=== PATIENT | female | born 1950 | race African-American/Black ===

== ENCOUNTER 2017-10-27 14:47 | Emergency (ER) | payer MEDICARE, OTHER, SELFPAY ==
[2017-10-27] MEDS ORDERED: HYDROCODONE/APAP 5/325 MG TAB ONE (15:31)
--- NOTE | 2017-10-27 15:48 | RAD REPORT ---
EXAM DESCRIPTION: RAD - Knee Left 3 View - 10/27/2017 3:33 pm CLINICAL HISTORY: Left knee pain FINDINGS: No fracture or dislocation is seen. Mild to moderate osteoarthritis involves the medial compartment consisting joint space narrowing and osteophytes. A joint effusion may be present. A prominent spur extends off of the superior aspect of the patella
--- NOTE | 2017-10-27 16:03 | ER ---
Nurse's Notes [facility] Name: Sagrario Low Age: 67 yrs Sex: Female : 1950 Arrival Date: 10/27/2017 Time: 14:49 Bed 13 Private MD: Orville Merida E Diagnosis: Pain in left knee Presentation: 10/27 14:54 Presenting complaint: Patient states: Left knee swelling and pain that began this ss morning, has had issues with it before, reports has an order for an MRI but has been too busy working to have the test done, denies trauma or injury to the knee at this time, reports has a hx of gout, takes allopurinol, but this doesn't feel like the gout pain. Transition of care: patient was not received from another setting of care. Onset of symptoms was October 27, 2017. Risk Assessment: Do you want to hurt yourself or someone else? Patient reports no desire to harm self or others. Initial Sepsis Screen: Does the patient meet any 2 criteria? No. Patient's initial sepsis screen is negative. Does the patient have a suspected source of infection? No. Patient's initial sepsis screen is negative. Care prior to arrival: None. 14:54 Acuity: ERIC 4 ss 14:54 Method Of Arrival: Ambulatory ss Historical: - Allergies: 14:57 No Known Allergies; ss - PMHx: 14:57 Gout; Hypertension; Hypothyroidism; ss - PSHx: 14:57 Cholecystectomy; ; ss - Immunization history:: Adult Immunizations up to date. - Social history:: Smoking status: Patient/guardian denies using tobacco, never smoked. - Ebola Screening: : Patient negative for fever greater than or equal to 101.5 degrees Fahrenheit, and additional compatible Ebola Virus Disease symptoms Patient denies exposure to infectious person Patient denies travel to an Ebola-affected area in the 21 days before illness onset No symptoms or risks identified at this time. Screenin:39 Abuse screen: Denies threats or abuse. Denies injuries from another. Nutritional aj screening: No deficits noted. Tuberculosis screening: No symptoms or risk factors identified. Fall Risk None identified. Assessment: 15:38 General: Appears in no apparent distress. comfortable, Behavior is calm, cooperative, aj appropriate for age. Pain: Pain: Complains of pain in left knee. 15:39 Neuro: Level of Consciousness is awake, alert, obeys commands, Oriented to person, aj place, time, situation, Appropriate for age. Respiratory: Airway is patent Respiratory effort is even, unlabored, Respiratory pattern is regular, symmetrical. Derm: Skin is intact, is healthy with good turgor, Skin is pink, warm \T\ dry. normal. Musculoskeletal: Reports pain in left knee. Vital Signs: 14:55 Pulse 65; Resp 18; Temp 97.7; Pulse Ox 100% ; Weight 86.18 kg (R); Height 5 ft. 3 in. ss (160.02 cm); Pain 10/10; 14:57 BP 135 / 86; ss 16:31 BP 137 / 79; Pulse 72; Resp 19; Pulse Ox 99% on R/A; aj 14:55 Body Mass Index 33.66 (86.18 kg, 160.02 cm) ED Course: 14:49 Patient arrived in ED. sb2 14:49 Orville Merida MD is Private Physician. sb2 14:53 Arm band placed on. ss 14:55 Triage completed. ss 15:01 Judson Hemphill, EMIGDIO is PHCP. pm1 15:01 Ron Wolfe MD is Attending Physician. pm1 15:23 Andressa Guardado, JOAN is Primary Nurse. aj 15:30 Patient moved to radiology via wheelchair. jr1 15:31 Knee Left 3 View XRAY In Process Unspecified. EDMS 15:32 Patient moved back from radiology. jr1 15:45 No provider procedures requiring assistance completed. Patient did not have IV access aj during this emergency room visit. 16:02 Sg Sarmiento MD is Referral Physician. pm1 16:31 Patient has correct armband on for positive identification. aj 16:31 Bridger wrap to left knee. aj Administered Medications: 15:38 Drug: [place] 5 mg-325 mg 1 tabs Route: PO; aj 16:29 Follow up: Response: Pain is decreased aj Outcome: 16:02 Discharge ordered by . pm1 16:31 Discharged to home ambulatory, with family. aj 16:31 Condition: good 16:31 Discharge instructions given to patient, Instructed on discharge instructions, follow up and referral plans. medication usage, Demonstrated understanding of instructions, follow-up care, medications, Prescriptions given X 1. 16:35 Patient left the ED. aj Signatures: Dispatcher [employer] Andressa Luis RN RN aj Ringgold, Jennifer jr1 Yue Almeida RN RN ss Judson Hemphill, CREDIT PORTFOLIO ADVISOR CREDIT PORTFOLIO ADVISOR pm1 Miesha Lovett sb2 Corrections: (The following items were deleted from the chart) 15:39 15:38 Pain: aj aj
--- NOTE | 2017-10-27 16:03 | EDPHYS ---
Physician Documentation [facility] Name: Sagrario Low Age: 67 yrs Sex: Female : 1950 Arrival Date: 10/27/2017 Time: 14:49 Bed 13 Private MD: Orville Merida E ED Physician Ron Wolfe HPI: 10/27 15:55 This 67 yrs old Black Female presents to ER via Ambulatory with complaints of Left Knee pm1 Pain. 15:55 The patient presents with pain, swelling. The complaints affect the left knee. pm1 Associated signs and symptoms: Pertinent negatives calf tenderness, fever, numbness, tingling, warmth. Treatment prior to arrival includes: prescription medications, codeine. Patient left knee with pain for at least one year and has been getting worse for the past 3-4 months. Patient seen by PCP in September for the same complaints and has had an order for left knee MRI that she has not gotten done due to work schedule. Patient reports increased pain with weight bearing and bending her left knee. Patient has been taking Tylenol #3 at home for the pain without relief. Historical: - Allergies: 14:57 No Known Allergies; ss - PMHx: 14:57 Gout; Hypertension; Hypothyroidism; ss - PSHx: 14:57 Cholecystectomy; ; ss - Immunization history:: Adult Immunizations up to date. - Social history:: Smoking status: Patient/guardian denies using tobacco, never smoked. - Ebola Screening: : Patient negative for fever greater than or equal to 101.5 degrees Fahrenheit, and additional compatible Ebola Virus Disease symptoms Patient denies exposure to infectious person Patient denies travel to an Ebola-affected area in the 21 days before illness onset No symptoms or risks identified at this time. ROS: 15:55 Constitutional: Negative for fever, chills, and weight loss, Cardiovascular: Negative pm1 for chest pain, palpitations, and edema, Respiratory: Negative for shortness of breath, cough, wheezing, and pleuritic chest pain, Abdomen/GI: Negative for abdominal pain, nausea, vomiting, diarrhea, and constipation, Back: Negative for injury and pain, : Negative for injury, bleeding, discharge, and swelling. 15:55 Skin: Negative for injury, rash, and discoloration, Neuro: Negative for headache, weakness, numbness, tingling, and seizure. 15:55 MS/extremity: Positive for pain, swelling, of the left knee, Negative for injury or acute deformity, decreased range of motion, deformity, paresthesias, rash, tingling. Exam: 15:55 Constitutional: This is a well developed, well nourished patient who is awake, alert, pm1 and in no acute distress. Head/Face: Normocephalic, atraumatic. Chest/axilla: Normal chest wall appearance and motion. Nontender with no deformity. No lesions are appreciated. Cardiovascular: Regular rate and rhythm with a normal S1 and S2. No gallops, murmurs, or rubs. No pulse deficits. Respiratory: Lungs have equal breath sounds bilaterally, clear to auscultation and percussion. No rales, rhonchi or wheezes noted. No increased work of breathing, no retractions or nasal flaring. Abdomen/GI: Soft, non-tender, with normal bowel sounds. No distension or tympany. No guarding or rebound. No evidence of tenderness throughout. Back: No spinal tenderness. No costovertebral tenderness. Full range of motion. Skin: Warm, dry with normal turgor. Normal color with no rashes, no lesions, and no evidence of cellulitis. 15:55 Musculoskeletal/extremity: Extremities: grossly normal except: noted in the left knee: There is no evidence of decreased ROM, deformity, Pain to lateral aspect of left knee with external and internal rotation. Negative drawer test. No pain with palpation and extension and flexion of knee, Circulation is intact in all extremities. Sensation intact. DVT Exam: No signs of deep vein thrombosis. Vital Signs: 14:55 Pulse 65; Resp 18; Temp 97.7; Pulse Ox 100% ; Weight 86.18 kg (R); Height 5 ft. 3 in. ss (160.02 cm); Pain 10/10; 14:57 BP 135 / 86; ss 16:31 BP 137 / 79; Pulse 72; Resp 19; Pulse Ox 99% on R/A; aj 14:55 Body Mass Index 33.66 (86.18 kg, 160.02 cm) ss MDM: 15:03 Patient medically screened. pm1 16:01 Data reviewed: vital signs. Data interpreted: Pulse oximetry: on room air is 100 %. pm1 Interpretation: normal. Counseling: I had a detailed discussion with the patient and/or guardian regarding: the historical points, exam findings, and any diagnostic results supporting the discharge/admit diagnosis, radiology results, the need for outpatient follow up, for definitive care, a orthopedic surgeon, to return to the emergency department if symptoms worsen or persist or if there are any questions or concerns that arise at home. 10/27 15:09 Order name: Knee Left 3 View XRAY; Complete Time: 15:55 pm1 10/27 15:55 Order name: Bridger wrap-joint; Complete Time: 16:29 pm1 Administered Medications: 15:38 Drug: [place] 5 mg-325 mg 1 tabs Route: PO; aj 16:29 Follow up: Response: Pain is decreased aj Disposition: 18:37 Co-signature as Attending Physician, Ron Wolfe MD. rn Disposition: 10/27/17 16:02 Discharged to Home. Impression: Pain in left knee. - Condition is Stable. - Discharge Instructions: Arthritis, Nonspecific, Knee Pain. - Prescriptions for Tylenol- Codeine #3 300-30 mg Oral Tablet - take 2 tablets by ORAL route every 6 hours As needed; 20 tablet. - Medication Reconciliation Form, Thank You Letter, Prescription Opioid Use form. - Follow up: Emergency Department; When: As needed; Reason: Worsening of condition. Follow up: Sg Sarmiento MD; When: 2 - 3 days; Reason: Recheck today's complaints, Continuance of care, Re-evaluation by your physician. - Problem is new. - Symptoms have improved. Signatures: Dispatcher [employer] Andressa Luis RN RN aj Nieto, Roman, MD MD rn Smirch, Shelby, RN RN ss Marinas, Patrick, NP ENROLLED AGENT pm1 Corrections: (The following items were deleted from the chart) 16:35 16:02 10/27/2017 16:02 Discharged to Home. Impression: Pain in left knee. Condition is aj Stable. Forms are Medication Reconciliation Form, Thank You Letter, Antibiotic Education, Prescription Opioid Use. Follow up: Emergency Department; When: As needed; Reason: Worsening of condition. Follow up: Sg Sarmiento; When: 2 - 3 days; Reason: Recheck today's complaints, Continuance of care, Re-evaluation by your physician. Problem is new. Symptoms have improved. pm1
== END 2017-10-27 16:35 | disposition home or self-care (01) ==
LOC: ER 14:47
DX: M25.562 Pain in left knee (principal); M10.9 Gout, unspecified; I10 Essential (primary) hypertension; E03.9 Hypothyroidism, unspecified
CPT/HCPCS: 99284

== ENCOUNTER 2018-08-29 14:27 | Emergency (ER) | payer OTHER ==
--- NOTE | 2018-08-29 15:55 | RAD REPORT ---
EXAM DESCRIPTION: RAD - Chest Pa And Lat (2 Views) - 08/29/2018 2:58 pm CLINICAL HISTORY: Productive cough, fever COMPARISON: August 2015 TECHNIQUE: PA and lateral views of the chest were obtained. FINDINGS: The lungs are normal volume. Airspace opacification is present posterior right lung base. No failure or volume overload. Heart size is normal and central vasculature is within normal limits . No pleural effusion or pneumothorax seen. No acute bone finding. Patient has prominent thoracolum bar scoliosis. No aortic abnormality. IMPRESSION: Acute pneumonia posterior right lung base.
[2018-08-29] MEDS ORDERED: AZITHROMYCIN 250 MG TAB ONE (16:06)
[2018-08-29] MEDS ORDERED: IPRATROPIUM BROM 0.5MG/2.5ML ONE (16:07)
[2018-08-29] MEDS ORDERED: ALBUTEROL 2.5 MG/3 ML NEB SOL ONE (16:07)
[2018-08-29] MEDS ORDERED: CEFTRIAXONE/SWI 1gm 1 GM/10 ML SYR ONE (16:07)
[2018-08-29] MEDS ORDERED: NA CHLORIDE 0.9% 100 ML IV ONE (16:08)
[2018-08-29 16:09] LABS: Absolute Lymphocytes (CBC) 2.2 K/uL (0.7-4.9); Absolute Monocytes 0.4 K/uL (0.1-1.3); Absolute Neutrophil 1.6 K/uL (1.8-8.0); Basophils % 0.7 % (0-1.3); Eosinophils % 1.9 % (0-4.4); Hematocrit 34.8 % (36.0-45.0); Lymphocytes % 50.8 % (15.3-44.8); MPV 8.8 fL (7.6-11.3); Monocytes % 9.1 % (3.3-12.3); RBC Red Blood Cell Count 3.82 M/uL (3.86-4.86)
[2018-08-29 16:18] LABS: Potassium 3.2 mmol/L (3.5-5.1)
--- NOTE | 2018-08-29 16:36 | EDPHYS ---
Physician Documentation [facility] Name: Sagrario Low Age: 68 yrs Sex: Female : 1950 Arrival Date: 08/29/2018 Time: 14:30 Bed 20 Private MD: Orville Merida E ED Physician Pelon Sr HPI: 08/29 15:42 This 68 yrs old Black Female presents to ER via Ambulatory with complaints of Cough, kb Congestion. 15:42 The patient or guardian reports cough, that is intermittent, described as moderate, kb with no sputum, flu symptoms, low-grade fever. Onset: The symptoms/episode began/occurred 2 day(s) ago. Severity of symptoms: At their worst the symptoms were mild, moderate, in the emergency department the symptoms are unchanged. Modifying factors: The symptoms are alleviated by nothing, the symptoms are aggravated by nothing. Associated signs and symptoms: Pertinent positives: fever, Pertinent negatives: chest pain, diarrhea, ear ache, nausea, rhinorrhea, sore throat, vomiting. The patient has not experienced similar symptoms in the past. The patient has not recently seen a physician. Historical: - Allergies: 14:40 No Known Allergies; sv - PMHx: 14:40 Gout; Hypertension; Hypothyroidism; sv - PSHx: 14:40 Cholecystectomy; ; sv - Immunization history:: Adult Immunizations up to date. - Social history:: Smoking status: Patient/guardian denies using tobacco. - Ebola Screening: : Patient negative for fever greater than or equal to 101.5 degrees Fahrenheit, and additional compatible Ebola Virus Disease symptoms Patient denies exposure to infectious person Patient denies travel to an Ebola-affected area in the 21 days before illness onset No symptoms or risks identified at this time. ROS: 15:42 ENT: Negative for injury, pain, and discharge, Neck: Negative for injury, pain, and kb swelling, Cardiovascular: Negative for chest pain, palpitations, and edema, Abdomen/GI: Negative for abdominal pain, nausea, vomiting, diarrhea, and constipation, Back: Negative for injury and pain, MS/Extremity: Negative for injury and deformity, Skin: Negative for injury, rash, and discoloration, Neuro: Negative for headache, weakness, numbness, tingling, and seizure. 15:42 Constitutional: Positive for fatigue, fever, Negative for body aches, chills, malaise, poor PO intake, weight loss. 15:42 Respiratory: Positive for cough, Negative for dyspnea on exertion, hemoptysis, orthopnea, pleurisy, shortness of breath, sputum production, wheezing. Exam: 15:41 Constitutional: This is a well developed, well nourished patient who is awake, alert, kb and in no acute distress. Head/Face: Normocephalic, atraumatic. Chest/axilla: Normal chest wall appearance and motion. Nontender with no deformity. No lesions are appreciated. Cardiovascular: Regular rate and rhythm with a normal S1 and S2. No gallops, murmurs, or rubs. Normal PMI, no JVD. No pulse deficits. Respiratory: Lungs have equal breath sounds bilaterally, clear to auscultation and percussion. No rales, rhonchi or wheezes noted. No increased work of breathing, no retractions or nasal flaring. Abdomen/GI: Soft, non-tender, with normal bowel sounds. No distension or tympany. No guarding or rebound. No evidence of tenderness throughout. Skin: Warm, dry with normal turgor. Normal color with no rashes, no lesions, and no evidence of cellulitis. MS/ Extremity: Pulses equal, no cyanosis. Neurovascular intact. Full, normal range of motion. Neuro: Awake and alert, GCS 15, oriented to person, place, time, and situation. Cranial nerves II-XII grossly intact. Motor strength 5/5 in all extremities. Sensory grossly intact. Cerebellar exam normal. Normal gait. Vital Signs: 14:40 BP 123 / 70; Pulse 76; Resp 20; Temp 97.1; Pulse Ox 100% ; Weight 81.65 kg; Height 5 sv ft. 3 in. (160.02 cm); Pain 0/10; 16:32 BP 132 / 78; Pulse 68; Resp 16; Pulse Ox 100% ; bp 14:40 Body Mass Index 31.89 (81.65 kg, 160.02 cm) sv MDM: 14:41 Patient medically screened. kb 15:22 Data reviewed: vital signs, nurses notes. Data interpreted: Pulse oximetry: on room air kb is 100 %. Interpretation: normal. Test interpretation: by ED physician or midlevel provider: plain radiologic studies, cxr shows pneumonia right lower lobe. 16:34 Counseling: I had a detailed discussion with the patient and/or guardian regarding: the kb historical points, exam findings, and any diagnostic results supporting the discharge/admit diagnosis, lab results, radiology results, the need for outpatient follow up, a family practitioner, to return to the emergency department if symptoms worsen or persist or if there are any questions or concerns that arise at home. ED course: Pt does not want to be admitted. No resp distress. Educated to return for shortness of breath or worsening symptoms. Findings and plan discussed with ERP. . 08/29 15:22 Order name: CBC with Diff; Complete Time: 16:30 kb 08/29 15:22 Order name: Basic Metabolic Panel; Complete Time: 16:19 kb 08/29 14:44 Order name: Chest Pa And Lat (2 Views) XRAY; Complete Time: 16:01 kb 08/29 15:22 Order name: Lactate; Complete Time: 16:21 kb 08/29 15:22 Order name: Procalcitonin; Complete Time: 16:30 kb 08/29 15:22 Order name: Blood Culture Adult (2) kb 08/29 15:22 Order name: IV Start; Complete Time: 15:45 kb Administered Medications: 15:45 Drug: Rocephin 1 grams Route: IV; Rate: calculated rate; Site: right upper arm; bp 16:46 Follow up: IV Status: Completed infusion; IV Intake: 100ml bp 15:45 Drug: Zithromax 500 mg Route: PO; bp 16:31 Follow up: Response: No adverse reaction bp 16:00 Drug: Albuterol 2.5 mg Route: Inhalation; bp 16:00 Drug: AtroVENT Aerosol 0.5 mg Route: Inhalation; bp Disposition: 08/30 12:10 Co-signature as Attending Physician, Pelon Sr MD I agree with the assessment and naomi plan of care. Disposition: 08/29/18 16:35 Discharged to Home. Impression: Pneumonia, unspecified organism. - Condition is Stable. - Discharge Instructions: Community-Acquired Pneumonia, Adult, [id number]. - Prescriptions for Augmentin 875- 125 mg Oral Tablet - take 1 tablet by ORAL route every 12 hours for 7 days; 14 tablet. Albuterol Sulfate 90 mcg/actuation - inhale 1-2 puff by INHALATION route every 4-6 hours; 1 Inhaler. Zithromax 500 mg Oral Tablet - take 1 tablet by ORAL route once daily for 5 days; 5 tablet. - Medication Reconciliation Form, Thank You Letter, Antibiotic Education, Prescription Opioid Use form. - Follow up: Emergency Department; When: As needed; Reason: Worsening of condition. Follow up: Private Physician; When: 2 - 3 days; Reason: Recheck today's complaints, Continuance of care, Re-evaluation by your physician. Signatures: Dispatcher [employer] EDMatilde Tripp FNP-C FNP-Ckb Verde, Stephanie, RN RN sv Pelon Sr MD MD cha Peltier, Brian RN RN bp Corrections: (The following items were deleted from the chart) 08/29 16:47 16:35 08/29/2018 16:35 Discharged to Home. Impression: Pneumonia, unspecified organism. bp Condition is Stable. Forms are Medication Reconciliation Form, Thank You Letter, Antibiotic Education, Prescription Opioid Use. Follow up: Emergency Department; When: As needed; Reason: Worsening of condition. Follow up: Private Physician; When: 2 - 3 days; Reason: Recheck today's complaints, Continuance of care, Re-evaluation by your physician. kb
--- NOTE | 2018-08-29 16:36 | ER ---
Nurse's Notes [facility] Name: Sagrario Low Age: 68 yrs Sex: Female : 1950 Arrival Date: 08/29/2018 Time: 14:30 Bed 20 Private MD: Orville Merida E Diagnosis: Pneumonia, unspecified organism Presentation: 08/29 14:39 Presenting complaint: Patient states: productive cough, fever, congestion since Tuesday. sv Transition of care: patient was not received from another setting of care. Onset of symptoms was August 27, 2018. Care prior to arrival: None. 14:39 Method Of Arrival: Ambulatory sv 14:39 Acuity: ERIC 3 sv 14:45 Risk Assessment: Do you want to hurt yourself or someone else? Patient reports no bp desire to harm self or others. Initial Sepsis Screen: Does the patient meet any 2 criteria? No. Patient's initial sepsis screen is negative. Does the patient have a suspected source of infection? No. Patient's initial sepsis screen is negative. Triage Assessment: 14:45 General: Appears in no apparent distress. comfortable, Behavior is calm, cooperative, bp appropriate for age. Pain: Denies pain. EENT: Reports nasal congestion. Neuro: Level of Consciousness is awake, alert, obeys commands, Oriented to person, place, time, situation, Appropriate for age. Cardiovascular: No deficits noted. Respiratory: Reports cough that is Breath sounds are clear bilaterally. GI: No signs and/or symptoms were reported involving the gastrointestinal system. : No signs and/or symptoms were reported regarding the genitourinary system. Derm: No deficits noted. Musculoskeletal: Circulation, motion, and sensation intact. Range of motion: intact in all extremities. Historical: - Allergies: 14:40 No Known Allergies; sv - PMHx: 14:40 Gout; Hypertension; Hypothyroidism; sv - PSHx: 14:40 Cholecystectomy; ; sv - Immunization history:: Adult Immunizations up to date. - Social history:: Smoking status: Patient/guardian denies using tobacco. - Ebola Screening: : Patient negative for fever greater than or equal to 101.5 degrees Fahrenheit, and additional compatible Ebola Virus Disease symptoms Patient denies exposure to infectious person Patient denies travel to an Ebola-affected area in the 21 days before illness onset No symptoms or risks identified at this time. Screenin:05 Abuse screen: Denies threats or abuse. Denies injuries from another. Nutritional bp screening: No deficits noted. Tuberculosis screening: No symptoms or risk factors identified. Fall Risk None identified. Assessment: 14:45 General: SEE TRIAGE NOTE. Cardiovascular: Rhythm is sinus rhythm. Respiratory: Reports bp cough that is. 16:43 Reassessment: PT D/C HOME AMBULATORY WITH FAMILY, DX WITH RLL PNEUMONIA. bp Cardiovascular: No deficits noted. Respiratory: Breath sounds with crackles in right lower lobe. Vital Signs: 14:40 BP 123 / 70; Pulse 76; Resp 20; Temp 97.1; Pulse Ox 100% ; Weight 81.65 kg; Height 5 sv ft. 3 in. (160.02 cm); Pain 0/10; 16:32 BP 132 / 78; Pulse 68; Resp 16; Pulse Ox 100% ; bp 14:40 Body Mass Index 31.89 (81.65 kg, 160.02 cm) sv ED Course: 14:30 Patient arrived in ED. rg4 14:31 Orville Merida MD is Private Physician. rg4 14:40 Triage completed. sv 14:40 Arm band placed on. sv 14:41 Matilde Low FNP-C is PHCP. kb 14:41 Pelon Sr MD is Attending Physician. kb 14:58 Chest Pa And Lat (2 Views) XRAY In Process Unspecified. EDMS 15:02 Chato Holden, JOAN is Primary Nurse. bp 15:05 Patient has correct armband on for positive identification. Bed in low position. Call bp light in reach. Side rails up X2. 15:45 Inserted saline lock: 20 gauge in right antecubital area, using aseptic technique. bp Blood collected. 16:44 No provider procedures requiring assistance completed. IV discontinued, intact, bp bleeding controlled, No redness/swelling at site. Pressure dressing applied. Administered Medications: 15:45 Drug: Rocephin 1 grams Route: IV; Rate: calculated rate; Site: right upper arm; bp 16:46 Follow up: IV Status: Completed infusion; IV Intake: 100ml bp 15:45 Drug: Zithromax 500 mg Route: PO; bp 16:31 Follow up: Response: No adverse reaction bp 16:00 Drug: Albuterol 2.5 mg Route: Inhalation; bp 16:00 Drug: AtroVENT Aerosol 0.5 mg Route: Inhalation; bp Intake: 16:46 IV: 100ml; Total: 100ml. bp Outcome: 16:35 Discharge ordered by . stanley 16:44 Discharged to home ambulatory, with family. bp 16:44 Condition: stable 16:44 Discharge instructions given to patient, Instructed on discharge instructions, follow up and referral plans. medication usage, Demonstrated understanding of instructions, follow-up care, medications, Prescriptions given X 3. 16:47 Patient left the ED. bp Signatures: Dispatcher [employer] EDMS Matilde Low, PERSONAL DEVELOPMENT COACH-C PERSONAL DEVELOPMENT COACH-Merle Ventura, RN RN Aarti Fierro4 Chato Holden RN RN bp
== END 2018-08-29 16:47 | disposition home or self-care (01) ==
LOC: ER 14:27
DX: J18.9 Pneumonia, unspecified organism (principal); M10.9 Gout, unspecified; I10 Essential (primary) hypertension; E03.9 Hypothyroidism, unspecified
CPT/HCPCS: 96365; 87040 ×2; 85025; 80048; 36415; 83605; 84145; 71046; 99285; J0696

== ENCOUNTER 2018-11-14 05:14 | Emergency (ER) | payer OTHER ==
--- NOTE | 2018-11-14 06:37 | ER ---
Nurse's Notes [facility] Name: Sagrario Low Age: 68 yrs Sex: Female : 1950 Arrival Date: 11/14/2018 Time: 05:17 Bed 14 Private MD: Diagnosis: Pain in left ankle and joints of left foot Presentation: 11/14 05:20 Presenting complaint: Patient states: that she is having pain to left outer ankle x 3 fc days. Denies any injury. Hx of gout and takes Allopurinol and Indomethacin prn. Transition of care: patient was not received from another setting of care. Onset of symptoms was November 12, 2018. Risk Assessment: Do you want to hurt yourself or someone else? Patient reports no desire to harm self or others. Initial Sepsis Screen: Does the patient meet any 2 criteria? No. Patient's initial sepsis screen is negative. Does the patient have a suspected source of infection? No. Patient's initial sepsis screen is negative. Care prior to arrival: None. 05:20 Method Of Arrival: Wheelchair fc 05:20 Acuity: ERIC 4 fc Historical: - Allergies: 05:31 No Known Allergies; fc - Home Meds: 05:31 losartan-hydrochlorothiazide Oral once daily for Hypertension [Active]; levothyroxine fc 100 mcg tab 1 tab once daily for Hypothyroidism [Active]; Allopurinol Oral as needed [Active]; Indomethacin Oral as needed [Active]; - PMHx: 05:31 Gout; Hypertension; Hypothyroidism; fc - PSHx: 05:31 Cholecystectomy; ; fc - Immunization history:: Last tetanus immunization: up to date. - Social history:: Smoking status: Patient/guardian denies using tobacco, Patient/guardian denies using alcohol, street drugs. - Ebola Screening: : Patient negative for fever greater than or equal to 101.5 degrees Fahrenheit, and additional compatible Ebola Virus Disease symptoms Patient denies exposure to infectious person Patient denies travel to an Ebola-affected area in the 21 days before illness onset. Screenin:20 Abuse screen: Denies threats or abuse. Nutritional screening: No deficits noted. fc Tuberculosis screening: No symptoms or risk factors identified. Fall Risk None identified. Assessment: 05:27 General: Appears in no apparent distress. uncomfortable, Behavior is calm, cooperative, jd3 appropriate for age. Pain: Complains of pain in left ankle Quality of pain is described as aching, shooting, tender, Is continuous, Aggravated by increased activity, repositioning, weight bearing. Neuro: Level of Consciousness is awake, alert, obeys commands, Oriented to person, place, time, situation. Cardiovascular: Capillary refill < 3 seconds Patient's skin is warm and dry. Respiratory: Airway is patent Respiratory effort is even, unlabored, Respiratory pattern is regular, symmetrical. GI: No signs and/or symptoms were reported involving the gastrointestinal system. : No signs and/or symptoms were reported regarding the genitourinary system. EENT: No signs and/or symptoms were reported regarding the EENT system. Derm: Skin is intact, Skin is dry, Skin is normal, Skin temperature is warm. Musculoskeletal: Circulation, motion, and sensation intact. Range of motion: limited in left ankle Swelling present in left ankle. 06:06 Reassessment: Patient appears in no apparent distress at this time. No changes from j previously documented assessment. Patient and/or family updated on plan of care and expected duration. Pain level reassessed. Patient is alert, oriented x 3, equal unlabored respirations, skin warm/dry/pink. awaiting x-ray and further providers orders. 06:48 Reassessment: Patient appears in no apparent distress at this time. Patient and/or jd3 family updated on plan of care and expected duration. Pain level reassessed. Patient is alert, oriented x 3, equal unlabored respirations, skin warm/dry/pink. reports understanding of discharge instructions. assisted pt to car with wheelchair. Vital Signs: 05:20 BP 125 / 73; Pulse 78; Resp 18; Temp 98.1(O); Pulse Ox 98% on R/A; Weight 81.19 kg (R); fc Height 5 ft. 3 in. (160.02 cm) (R); Pain 9/10; 06:06 BP 140 / 89; Pulse 70; Resp 18 S; Pulse Ox 99% on R/A; Pain 9/10; jd3 05:20 Body Mass Index 31.71 (81.19 kg, 160.02 cm) ED Course: 05:17 Patient arrived in ED. ag3 05:20 Alfred Townsend RN is Primary Nurse. jd3 05:20 Arm band placed on Patient placed in an exam room, on a stretcher. fc 05:20 Patient has correct armband on for positive identification. Bed in low position. Call light in reach. Side rails up X 1. Pulse ox on. NIBP on. 05:20 No provider procedures requiring assistance completed. fc 05:28 Triage completed. fc 06:09 Pelon Kennedy PA is PHCP. cp 06:09 Ron Wolfe MD is Attending Physician. cp 06:17 Warm blanket given. Pillow given. jd3 06:22 Ankle Left 3 View XRAY In Process Unspecified. EDMS 06:49 Patient did not have IV access during this emergency room visit. jd3 Administered Medications: 06:38 Drug: Ibuprofen 800 mg Route: PO; jd3 06:50 Follow up: Response: No adverse reaction jd3 06:38 Drug: HYDROcodone-acetaminophen 5 mg-325 mg 1 tabs Route: PO; jd3 06:50 Follow up: Response: No adverse reaction jd3 Outcome: 06:36 Discharge ordered by . cp 06:49 Discharged to home via wheelchair, with family. jd3 06:49 Condition: stable 06:49 Discharge instructions given to patient, family, Instructed on discharge instructions, follow up and referral plans. medication usage, Demonstrated understanding of instructions, follow-up care, medications, Prescriptions given X 2. 06:51 Patient left the ED. jd3 Signatures: Dispatcher [employer] EDFL Jessica Parker RN RN Pelon Kennedy PA PA cp Davies, Jonathon, RN RN jd3 Angela Fernández ag3
--- NOTE | 2018-11-14 06:37 | EDPHYS ---
Physician Documentation [facility] Name: Sagrario Low Age: 68 yrs Sex: Female : 1950 Arrival Date: 11/14/2018 Time: 05:17 Bed 14 Private MD: ED Physician Ron Wolfe HPI: 11/14 06:29 This 68 yrs old Black Female presents to ER via Wheelchair with complaints of Ankle cp Swelling. 06:30 The patient presents with pain, that is acute, swelling, tenderness. The complaints cp affect the left ankle. Onset: The symptoms/episode began/occurred 3 day(s) ago. Context: resulted from an unknown cause, The patient can partially bear weight on the affected extremity. the patient is able to ambulate. Associated signs and symptoms: Pertinent negatives: calf tenderness, numbness, warmth, weakness. Modifying factors: the symptoms are aggravated by weight bearing, movement. Severity of symptoms: in the emergency department the symptoms are unchanged, despite home interventions. Historical: - Allergies: 05:31 No Known Allergies; fc - Home Meds: 05:31 losartan-hydrochlorothiazide Oral once daily for Hypertension [Active]; levothyroxine fc 100 mcg tab 1 tab once daily for Hypothyroidism [Active]; Allopurinol Oral as needed [Active]; Indomethacin Oral as needed [Active]; - PMHx: 05:31 Gout; Hypertension; Hypothyroidism; fc - PSHx: 05:31 Cholecystectomy; ; fc - Immunization history:: Last tetanus immunization: up to date. - Social history:: Smoking status: Patient/guardian denies using tobacco, Patient/guardian denies using alcohol, street drugs. - Ebola Screening: : Patient negative for fever greater than or equal to 101.5 degrees Fahrenheit, and additional compatible Ebola Virus Disease symptoms Patient denies exposure to infectious person Patient denies travel to an Ebola-affected area in the 21 days before illness onset. ROS: 06:31 Eyes: Negative for injury, pain, redness, and discharge. cp 06:31 Constitutional: Negative for body aches, chills, fever, poor PO intake. 06:31 ENT: Negative for drainage from ear(s), ear pain, sore throat, difficulty swallowing, difficulty handling secretions. 06:31 Cardiovascular: Negative for chest pain, palpitations. 06:31 Respiratory: Negative for cough, shortness of breath, wheezing. 06:31 Abdomen/GI: Negative for abdominal pain, nausea, vomiting, and diarrhea. 06:31 Back: Negative for pain at rest, pain with movement, radiated pain. 06:31 MS/extremity: Positive for pain, swelling, tenderness, of the left lateral ankle, Negative for injury or acute deformity, paresthesias. 06:31 All other systems are negative. Exam: 06:33 Head/Face: Normocephalic, atraumatic. cp 06:33 Constitutional: The patient appears in no acute distress, alert, awake, non-toxic, well developed, well nourished. 06:33 Cardiovascular: Rate: normal. 06:33 Respiratory: the patient does not display signs of respiratory distress, Respirations: normal. 06:33 Musculoskeletal/extremity: Extremities: grossly normal except: noted in the left lateral ankle: pain, swelling, tenderness, There is no evidence of decreased ROM, deformity, erythema, Perfusion: the extremity is normally perfused throughout, Sensation intact. 06:33 Skin: cellulitis, is not appreciated, no rash present. cp Vital Signs: 05:20 BP 125 / 73; Pulse 78; Resp 18; Temp 98.1(O); Pulse Ox 98% on R/A; Weight 81.19 kg (R); fc Height 5 ft. 3 in. (160.02 cm) (R); Pain 9/10; 06:06 BP 140 / 89; Pulse 70; Resp 18 S; Pulse Ox 99% on R/A; Pain 9/10; jd3 05:20 Body Mass Index 31.71 (81.19 kg, 160.02 cm) fc MDM: 06:10 Patient medically screened. cp 06:35 Data reviewed: vital signs, nurses notes, radiologic studies, plain films, and as a cp result, I will discharge patient. Counseling: I had a detailed discussion with the patient and/or guardian regarding: the historical points, exam findings, and any diagnostic results supporting the discharge/admit diagnosis, radiology results, the need for outpatient follow up, an shipping and receiving coordinator, to return to the emergency department if symptoms worsen or persist or if there are any questions or concerns that arise at home. Response to treatment: the patient's symptoms have mildly improved after treatment, and as a result, I will discharge patient. 11/14 05:32 Order name: Ankle Left 3 View XRAY Administered Medications: 06:38 Drug: Ibuprofen 800 mg Route: PO; jd3 06:50 Follow up: Response: No adverse reaction jd3 06:38 Drug: HYDROcodone-acetaminophen 5 mg-325 mg 1 tabs Route: PO; jd3 06:50 Follow up: Response: No adverse reaction jd3 Disposition: 07:01 Co-signature as Attending Physician, Ron Wolfe MD. rn Disposition: 11/14/18 06:36 Discharged to Home. Impression: Pain in left ankle and joints of left foot. - Condition is Stable. - Discharge Instructions: Elastic Bandage and RICE, Ankle Pain. - Prescriptions for Tramadol 50 mg Oral Tablet - take 1 tablet by ORAL route every 8 hours As needed as needed; 20 tablet. Prednisone 20 mg Oral Tablet - take 2 tablet by ORAL route once daily for 5 days; 10 tablet. - Medication Reconciliation Form, Thank You Letter, Antibiotic Education, Prescription Opioid Use, Work release form form. - Follow up: Private Physician; When: 2 - 3 days; Reason: Worsening of condition. - Problem is new. - Symptoms have improved. Signatures: Dispatcher [employer] Jessica Beltrán RN RN Ron Wolfe MD MD rn Page, Corey, PA PA cp Davies, Jonathon RN RN jd3 Corrections: (The following items were deleted from the chart) 06:51 06:36 11/14/2018 06:36 Discharged to Home. Impression: Pain in left ankle and joints of jd3 left foot. Condition is Stable. Forms are Medication Reconciliation Form, Thank You Letter, Antibiotic Education, Prescription Opioid Use. Follow up: Private Physician; When: 2 - 3 days; Reason: Worsening of condition. Problem is new. Symptoms have improved. cp 11/15 05:20 11/14 06:33 Skin: cellulitis, is not appreciated, no rash present. cp cp 11/15 05:30 11/14 06:33 Skin: cellulitis, is not appreciated, rash can be described as plaque-like, cp scale, on the right foot and left foot, cp
[2018-11-14] MEDS ORDERED: HYDROCODONE/APAP 5/325 MG TAB ONE (06:47)
[2018-11-14] MEDS ORDERED: IBUPROFEN 400 MG TAB ONE (06:47)
--- NOTE | 2018-11-14 08:04 | RAD REPORT ---
EXAM DESCRIPTION: RAD - Ankle Left 3 View -11/14/2018 6:22 am CLINICAL HISTORY: Left ankle pain FINDINGS: No fracture or dislocation is seen. Mild joint space narrowing and small osteophytes. No erosions seen. Moderate calcaneal spur. Mild soft tissue swelling laterally
== END 2018-11-14 06:51 | disposition home or self-care (01) ==
LOC: ER 05:14
DX: M25.572 Pain in left ankle and joints of left foot (principal); M10.9 Gout, unspecified; I10 Essential (primary) hypertension; E03.9 Hypothyroidism, unspecified
CPT/HCPCS: 99284

== ENCOUNTER 2019-05-15 09:21 | Emergency (ER) | payer OTHER ==
--- NOTE | 2019-05-15 10:34 | RAD REPORT ---
EXAM DESCRIPTION: RAD - Lumbar Spine 3 Views - 05/15/2019 10:29 am CLINICAL HISTORY: low back pain Radiculopathy COMPARISON: LUMBAR SPINE 3 VIEWS dated 01/07/2015; LUMBAR SPINE 3 VIEWS dated 08/07/2012 FINDINGS: Vertebral body heights appear maintained. No compression fracture noted. Disc spaces are m aintained. Levoscoliosis is present. Cholecystectomy clips. IMPRESSION: No acute process identified. Moderate levoscoliosis.
[2019-05-15] MEDS ORDERED: HYDROCODONE/APAP 5/325 MG TAB ONE (10:53)
--- NOTE | 2019-05-15 11:52 | ER ---
Nurse's Notes [facility] Name: Sagrario Low Age: 68 yrs Sex: Female : 1950 Arrival Date: 05/15/2019 Time: 09:22 Bed 17 Private MD: Diagnosis: Strain of muscle and tendon of back wall of thorax Presentation: 05/15 09:34 Presenting complaint: Patient states: left lower back pain that began approximately 1 aa5 week ago. Pt denies injury. Denies urinary symptoms. Transition of care: patient was not received from another setting of care. Onset of symptoms was May 2019. Risk Assessment: Do you want to hurt yourself or someone else? Patient reports no desire to harm self or others. Initial Sepsis Screen: Does the patient meet any 2 criteria? No. Patient's initial sepsis screen is negative. Does the patient have a suspected source of infection? No. Patient's initial sepsis screen is negative. Care prior to arrival: None. 09:34 Acuity: ERIC 4 aa5 09:34 Method Of Arrival: Ambulatory aa5 Historical: - Allergies: 09:35 No Known Allergies; aa5 - PMHx: 09:35 Gout; Hypertension; Hypothyroidism; aa5 - PSHx: 09:35 Cholecystectomy; ; aa5 - Immunization history:: Flu vaccine is up to date. - Social history:: Smoking status: Patient/guardian denies using tobacco. - Ebola Screening: : No symptoms or risks identified at this time. Screenin:54 Abuse screen: Denies threats or abuse. Nutritional screening: No deficits noted. em Tuberculosis screening: No symptoms or risk factors identified. Fall Risk None identified. Assessment: 10:41 General: Appears in no apparent distress. comfortable, Behavior is calm, cooperative, em Denies fever. Pain: Complains of pain in left mid back Pain radiates to left low back Pain currently is 7 out of 10 on a pain scale. Neuro: Level of Consciousness is awake, alert, obeys commands, Oriented to person, place, time, situation, Appropriate for age. Cardiovascular: Capillary refill < 3 seconds Patient's skin is warm and dry. Respiratory: Airway is patent Respiratory effort is even, unlabored, Respiratory pattern is regular, symmetrical. GI: Abdomen is flat, Patient currently denies nausea, vomiting. : Denies burning with urination, pain with urination. Derm: Skin is intact, is healthy with good turgor, Skin is pink, warm \T\ dry. Musculoskeletal: Capillary refill < 3 seconds, Range of motion: intact in all extremities. Vital Signs: 09:35 BP 152 / 87; Pulse 60; Resp 16 S; Temp 98.0(TE); Pulse Ox 100% on R/A; Weight 77.11 kg aa5 (R); Height 5 ft. 3 in. (160.02 cm) (R); Pain 7/10; 09:35 Body Mass Index 30.11 (77.11 kg, 160.02 cm) aa5 ED Course: 09:22 Patient arrived in ED. as 09:35 Triage completed. aa5 09:35 Arm band placed on. aa 09:42 Aden Dale LVN is Primary Nurse. em 09:51 Abhay Ochoa PA is PHCP. [facility] 09:51 Desmond Lopez MD is Attending Physician. [facility] 10:26 Lumbar Spine (3 Views) XRAY In Process Unspecified. EDMS 10:54 Patient has correct armband on for positive identification. Bed in low position. Call em light in reach. Adult w/ patient. 10:54 Urine collected: clean catch specimen, clear. em 12:01 No provider procedures requiring assistance completed. Patient did not have IV access em during this emergency room visit. Administered Medications: 10:53 Drug: [place] 5 mg-325 mg 1 tabs Route: PO; em 11:41 Follow up: Response: No adverse reaction; Marked relief of symptoms; RASS: Alert and em Calm (0) Outcome: 11:52 Discharge ordered by . [facility] 12:01 Discharged to home ambulatory, with family. em 12:01 Condition: good 12:01 Discharge instructions given to patient, family, Instructed on discharge instructions, follow up and referral plans. medication usage, Demonstrated understanding of instructions, follow-up care, medications, Prescriptions given X 1. 12:07 Patient left the ED. em Signatures: Dispatcher [employer] EDMS Abhay Ochoa PA PA jmm Munoz, Edgar, RN JOAN em Maday Tavares Audri RN RN [facility]
--- NOTE | 2019-05-15 11:53 | EDPHYS ---
Physician Documentation [facility] Name: Sagrario Low Age: 68 yrs Sex: Female : 1950 Arrival Date: 05/15/2019 Time: 09:22 Bed 17 Private MD: ED Physician Desmond Lopez HPI: 05/15 10:09 This 68 yrs old Black Female presents to ER via Ambulatory with complaints of Back Pain.[facility] 10:09 The patient presents with pain that is chronic. The symptoms are located in the left jmm low back and left mid back. Onset: The symptoms/episode began/occurred gradually, 3 day(s) ago. The pain does not radiate. Associated signs and symptoms: Pertinent negatives: abdominal pain, chest pain, dysuria, fever. This is a 68 year old female with a history of htn, gout that presents to the ED with complaints of left sided back pain. Patient states she has had similar pain for months with the most recent episode beginning this past weekend. Patient denies chest pain, fever, abdominal pain, shortness of breath. . Historical: - Allergies: 09:35 No Known Allergies; aa5 - PMHx: 09:35 Gout; Hypertension; Hypothyroidism; aa5 - PSHx: 09:35 Cholecystectomy; ; aa5 - Immunization history:: Flu vaccine is up to date. - Social history:: Smoking status: Patient/guardian denies using tobacco. - Ebola Screening: : No symptoms or risks identified at this time. ROS: 10:09 Constitutional: Negative for fever, chills, and weight loss, Cardiovascular: Negative jmm for chest pain, palpitations, and edema, Respiratory: Negative for shortness of breath, cough, wheezing, and pleuritic chest pain, Abdomen/GI: Negative for abdominal pain, nausea, vomiting, diarrhea, and constipation. 10:09 Back: Positive for pain with movement. 10:09 All other systems are negative. Exam: 10:09 Constitutional: This is a well developed, well nourished patient who is awake, alert, jmm and in no acute distress. Head/Face: atraumatic. Eyes: EOMI, no conjunctival erythema appreciated ENT: Moist Mucus Membranes Neck: Trachea midline, Supple Chest/axilla: Normal chest wall appearance and motion. Cardiovascular: Regular rate and rhythm. No edema appreciated Respiratory: Normal respirations, no respiratory distress appreciated Abdomen/GI: Non distended, soft 10:09 Neuro: Awake and alert, normal gait Psych: Behavior is normal, Mood is normal, Patient is cooperative and pleasant 10:09 Back: pain, that is mild, of the left low back and left mid back, vertebral tenderness, is not appreciated. 10:09 Musculoskeletal/extremity: ROM: intact in all extremities. Vital Signs: 09:35 BP 152 / 87; Pulse 60; Resp 16 S; Temp 98.0(TE); Pulse Ox 100% on R/A; Weight 77.11 kg aa5 (R); Height 5 ft. 3 in. (160.02 cm) (R); Pain 11/15; 09:35 Body Mass Index 30.11 (77.11 kg, 160.02 cm) aa5 MDM: 10:08 Patient medically screened. [facility] 11:49 Data reviewed: vital signs, nurses notes. Counseling: I had a detailed discussion with [facility] the patient and/or guardian regarding: the historical points, exam findings, and any diagnostic results supporting the discharge/admit diagnosis, radiology results, the need for outpatient follow up, to return to the emergency department if symptoms worsen or persist or if there are any questions or concerns that arise at home. ED course: Pain decreased in the ED. I do not suspect dissection or acs. Pain most likely MS. Patient is otherwise given strict return precautions. patient understood and agrees with the plan of care. . 05/15 10:08 Order name: Lumbar Spine (3 Views) XRAY; Complete Time: 10:38 [facility] 05/15 10:08 Order name: Urine Dipstick-Ancillary (obtain specimen); Complete Time: 10:48 [facility] Administered Medications: 10:53 Drug: [place] 5 mg-325 mg 1 tabs Route: PO; em 11:41 Follow up: Response: No adverse reaction; Marked relief of symptoms; RASS: Alert and em Calm (0) Disposition: 13:20 Co-signature as Attending Physician, Desmond Lopez MD I agree with the assessment and kdr plan of care. Disposition: 05/15/19 11:52 Discharged to Home. Impression: Strain of muscle and tendon of back wall of thorax. - Condition is Stable. - Discharge Instructions: Thoracic Strain. - Prescriptions for orphenadrine citrate 100 mg Oral Tablet Sustained Release - take 1 tablet by ORAL route 2 times per day As needed; 20 tablet. - Work release form, Medication Reconciliation Form, Thank You Letter, Antibiotic Education, Prescription Opioid Use form. - Follow up: Private Physician; When: 2 - 3 days; Reason: Recheck today's complaints, Continuance of care, Re-evaluation by your physician. Signatures: Dispatcher [employer] Desmond Mosqueda MD MD kdr Mickail, Joel, PA PA jmm Munoz, Edgar, JOAN RN Elizabeth Pacheco RN RN aa5 Corrections: (The following items were deleted from the chart) 12:07 11:52 05/15/2019 11:52 Discharged to Home. Impression: Strain of muscle and tendon of em back wall of thorax. Condition is Stable. Forms are Medication Reconciliation Form, Thank You Letter, Antibiotic Education, Prescription Opioid Use. Follow up: Private Physician; When: 2 - 3 days; Reason: Recheck today's complaints, Continuance of care, Re-evaluation by your physician. kali
[2019-05-15 12:20] VITALS: BP 152/87; TEMP 98; O2SAT 100
== END 2019-05-15 12:07 | disposition home or self-care (01) ==
LOC: ER 09:21
DX: S29.012A Strain of muscle and tendon of back wall of thorax, initial encounter (principal); X58.XXXA Exposure to other specified factors, initial encounter
CPT/HCPCS: 72100; 99284

== ENCOUNTER 2022-03-27 12:00 | Emergency (ER) | payer OTHER ==
[2022-03-27] MEDS ORDERED: HYDROCODONE/APAP 5/325 MG TAB ONE (13:26)
--- NOTE | 2022-03-27 13:38 | RAD REPORT ---
EXAM DESCRIPTION: RAD - Knee Left 3 View - 03/27/2022 1:29 pm CLINICAL HISTORY: Left knee pain FINDINGS: No fracture or dislocation is seen. Moderate osteoarthritis medial compartment consistent joint space narrowing and osteophytes. Large spur extends off of the superior patella. Small joint effusion
--- NOTE | 2022-03-27 13:59 | EDPHYS ---
Physician Documentation [facility] Name: Sagrario Low Age: 71 yrs Sex: Female : 1950 Arrival Date: 03/27/2022 Time: 12:04 Bed Treatment Private MD: ED Physician Destin Tapia HPI: 03/27 12:45 This 71 yrs old Black Female presents to ER via Ambulatory with complaints of Knee Pain.jh7 12:45 Onset: The symptoms/episode began/occurred last night. Patient presents with left knee jh7 pain starting last night. Denies any new injury. States that she had a ligament repaired on that knee 2 years ago.. Historical: - Allergies: 12:42 PENICILLINS; hb - PMHx: 12:42 Gout; Hypertension; Hypothyroidism; hb - Immunization history:: Adult Immunizations up to date. - Social history:: Smoking status: Patient denies any tobacco usage or history of. ROS: 12:45 Constitutional: Negative for fever, chills, and weight loss, Neck: Negative for injury, jh7 pain, and swelling, Cardiovascular: Negative for chest pain, palpitations, and edema, Respiratory: Negative for shortness of breath, cough, wheezing, and pleuritic chest pain, Back: Negative for injury and pain, Skin: Negative for injury, rash, and discoloration, Neuro: Negative for headache, weakness, numbness, tingling, and seizure. 12:45 MS/extremity: Positive for pain, swelling, Negative for acute changes, decreased range of motion. 12:45 All other systems are negative. Exam: 12:45 Constitutional: This is a well developed, well nourished patient who is awake, alert, jh7 and in no acute distress. Head/Face: Normocephalic, atraumatic. Neck: Trachea midline, no thyromegaly or masses palpated, and no cervical lymphadenopathy. Supple, full range of motion without nuchal rigidity, or vertebral point tenderness. No Meningismus. Cardiovascular: Regular rate and rhythm with a normal S1 and S2. No gallops, murmurs, or rubs. Normal PMI, no JVD. No pulse deficits. Respiratory: Lungs have equal breath sounds bilaterally, clear to auscultation and percussion. No rales, rhonchi or wheezes noted. No increased work of breathing, no retractions or nasal flaring. Back: No spinal tenderness. No costovertebral tenderness. Full range of motion. Skin: Warm, dry with normal turgor. Normal color with no rashes, no lesions, and no evidence of cellulitis. Neuro: Awake and alert, GCS 15, oriented to person, place, time, and situation. Motor strength 5/5 in all extremities. Sensory grossly intact. Normal gait. 12:45 Musculoskeletal/extremity: ROM: intact in all extremities, Circulation is intact in all extremities. Sensation intact. Weight bearing: able to fully bear weight, L knee: mild diffuse swelling noted to the L knee. Full ROM, but pain with flexion and excessive weight bearing.. Vital Signs: 12:42 Pulse 82; Resp 16; Temp 97.1; Pulse Ox 100% on R/A; Weight 85.73 kg; Height 5 ft. 3 in. hb (160.02 cm); Pain 9/10; 13:00 BP 142 / 71; Pulse 69; Resp 16; Pulse Ox 100% on R/A; Pain 9/10; eh3 12:42 Body Mass Index 33.48 (85.73 kg, 160.02 cm) hb MDM: 12:27 Patient medically screened. [facility] 14:00 Differential diagnosis: contusion, sprain, strain. Data reviewed: vital signs, nurses [facility] notes, radiologic studies, plain films. Data interpreted: Pulse oximetry: is 100 %. Interpretation: normal. Counseling: I had a detailed discussion with the patient and/or guardian regarding: the historical points, exam findings, and any diagnostic results supporting the discharge/admit diagnosis, to return to the emergency department if symptoms worsen or persist or if there are any questions or concerns that arise at home. ED course: An Birdger wrap was applied to the left knee. Advised the patient to follow-up with her orthopedist for chronic knee pain. Also advised to ice and elevate at home.. 03/27 12:41 Order name: XRAY Knee LEFT 3 view; Complete Time: 13:55 [facility] 03/27 13:58 Order name: Bridger wrap-joint; Complete Time: 14:39 [facility] Administered Medications: 13:00 Drug: HYDROcodone-acetaminophen 5 mg-325 mg 1 tabs Route: PO; 3 14:06 Follow up: Response: Pain is decreased eh3 Disposition: 15:44 Co-signature as Attending Physician, Destin Tapia MD I agree with the assessment and rt plan of care. Disposition Summary: 03/27/22 13:59 Discharge Ordered Location: Home [facility] Problem: an ongoing problem [facility] Symptoms: are unchanged [facility] Condition: Stable [facility] Diagnosis - Pain in left knee [facility] Followup: [facility] - With: Private Physician - When: 2 - 3 days - Reason: Recheck today's complaints Discharge Instructions: - Discharge Summary Sheet [facility] - Joint Pain [facility] Forms: - Medication Reconciliation Form [facility] - Thank You Letter [facility] Prescriptions: - Naprosyn 500 mg Oral Tablet - take 1 tablet by ORAL route 2 times per day take with food; 30 tablet; Refills: [facility] 0, Product Selection Permitted Signatures: Dispatcher [employer] Babita Ghotra, RN JOAN Trudy Vásquez RN RN eh3 Jane Honag, SOLE LAYER SOLE LAYER [facility] Destin Tapia MD MD rt
--- NOTE | 2022-03-27 13:59 | ER ---
Nurse's Notes [facility] Name: Sagrario Low Age: 71 yrs Sex: Female : 1950 Arrival Date: 03/27/2022 Time: 12:04 Bed Treatment Private MD: Diagnosis: Pain in left knee Presentation: 03/27 12:42 Chief complaint: Left knee pain x 1 week. Denies injury. Coronavirus screen: At this hb time, the client does not indicate any symptoms associated with coronavirus-19. Ebola Screen: No symptoms or risks identified at this time. Initial Sepsis Screen: Does the patient meet any 2 criteria? No. Patient's initial sepsis screen is negative. Does the patient have a suspected source of infection? No. Patient's initial sepsis screen is negative. Risk Assessment: Do you want to hurt yourself or someone else? Patient reports no desire to harm self or others. Onset of symptoms was March 20, 2022. 12:42 Method Of Arrival: Ambulatory 12:42 Acuity: ERIC 4 hb Triage Assessment: 13:00 General: Appears in no apparent distress. uncomfortable, Behavior is calm, cooperative, eh3 appropriate for age. Pain: Complains of pain in left knee Pain does not radiate. Pain currently is 9 out of 10 on a pain scale. 13:00 EENT: No signs and/or symptoms were reported regarding the EENT system. Neuro: Luna eh3 Agitation-Sedation Scale (RASS): 0 - Alert and Calm Level of Consciousness is awake, alert, obeys commands, Oriented to person, place, time, situation. Cardiovascular: Capillary refill < 3 seconds Patient's skin is warm and dry. Respiratory: Airway is patent Respiratory effort is even, unlabored, Respiratory pattern is regular, symmetrical. GI: No signs and/or symptoms were reported involving the gastrointestinal system. : No signs and/or symptoms were reported regarding the genitourinary system. Derm: No signs and/or symptoms reported regarding the dermatologic system. Musculoskeletal: Circulation, motion, and sensation intact. Range of motion: limited in left knee Swelling present in left knee. Historical: - Allergies: 12:42 PENICILLINS; hb - PMHx: 12:42 Gout; Hypertension; Hypothyroidism; hb - Immunization history:: Adult Immunizations up to date. - Social history:: Smoking status: Patient denies any tobacco usage or history of. Screenin:00 Abuse screen: Denies threats or abuse. Denies injuries from another. Nutritional 3 screening: No deficits noted. Tuberculosis screening: No symptoms or risk factors identified. Fall Risk Gait- Impaired (20 pts.). Assessment: 13:00 Reassessment: No changes from previously documented assessment. See triage assessment. 3 Vital Signs: 12:42 Pulse 82; Resp 16; Temp 97.1; Pulse Ox 100% on R/A; Weight 85.73 kg; Height 5 ft. 3 in. hb (160.02 cm); Pain 9/10; 13:00 BP 142 / 71; Pulse 69; Resp 16; Pulse Ox 100% on R/A; Pain 9/10; eh3 12:42 Body Mass Index 33.48 (85.73 kg, 160.02 cm) hb ED Course: 12:04 Patient arrived in ED. as 12:27 Jane Hoang FNP is PHCP. [facility] 12:27 Destin Tapia MD is Attending Physician. [facility] 12:42 Triage completed. hb 12:43 Arm band placed on. hb 12:45 Trudy Vásquez, RN is Primary Nurse. 3 13:00 Patient has correct armband on for positive identification. Bed in low position. Call [facility] light in reach. Adult w/ patient. Pulse ox on. NIBP on. Door closed. Noise minimized. Warm blanket given. 13:31 XRAY Knee LEFT 3 view In Process Unspecified. EDMS 14:41 No provider procedures requiring assistance completed. Patient did not have IV access iw during this emergency room visit. Administered Medications: 13:00 Drug: HYDROcodone-acetaminophen 5 mg-325 mg 1 tabs Route: PO; 3 14:06 Follow up: Response: Pain is decreased [facility] Medication: 14:41 VIS not applicable for this client. iw Outcome: 13:59 Discharge ordered by . [facility] 14:38 Discharged to home ambulatory, with family. iw 14:38 Condition: good 14:38 Discharge instructions given to patient, Instructed on discharge instructions, follow up and referral plans. medication usage, Demonstrated understanding of instructions, follow-up care, medications, Prescriptions given X 1. 14:39 Patient left the ED. iw Signatures: Dispatcher [employer] EDMS Maday Tavares Irene JOAN RN Babita Yoo RN RN Trudy Vásquez RN RN 3 Jane Hoang, SUPERVISORY CLERK SUPERVISORY CLERK 7 Corrections: (The following items were deleted from the chart) 14:09 13:00 Pain: Complains of pain in right foot and left foot Pain does not radiate. Pain eh3 currently is 9 out of 10 on a pain scale. 3
[2022-03-27 14:46] VITALS: TEMP 97.1; O2SAT 100
[2022-03-27 14:47] VITALS: BP 142/71
== END 2022-03-27 14:39 | disposition home or self-care (01) ==
LOC: ER 12:00
DX: M25.562 Pain in left knee (principal)
CPT/HCPCS: 99284

== ENCOUNTER 2023-03-02 18:19 | Emergency (ER) | payer OTHER ==
--- NOTE | 2023-03-02 18:58 | RAD REPORT ---
EXAM DESCRIPTION: RAD - Chest Single View - 03/02/2023 6:46 pm CLINICAL HISTORY: Cough;Congestion Chest pain. COMPARISON: Chest Pa And Lat (2 Views) dated 01/12/2019; Chest Pa And Lat (2 Views) dated 08/29/2018; C hest Single View dated 08/17/2015; CHEST PA AND LAT 2 VIEW dated 07/21/2015 FINDINGS: Portable technique limits examination quality. The lungs are grossly clear. The heart is normal in size. No displaced fractures.Advanced dextroscoli osis of the thoracic spine. IMPRESSION: No acute intrathoracic process suspected.
[2023-03-02] MEDS ORDERED: HYDROCODONE/CHLORPHEN 5 ML/OSYR ONE (19:28)
--- NOTE | 2023-03-02 19:42 | EDPHYS ---
Physician Documentation [facility] Name: Sagrario Low Age: 72 yrs Sex: Female : 1950 Arrival Date: 03/02/2023 Time: 18:19 Bed 12 Private MD: ED Physician Bob Carpio HPI: 03/02 19:22 This 72 yrs old Black Female presents to ER via Ambulatory with complaints of Cough, kb Congestion. 19:22 The patient or guardian reports cough, that is intermittent, described as mild. Onset: kb The symptoms/episode began/occurred 3 day(s) ago. Severity of symptoms: At their worst the symptoms were moderate, in the emergency department the symptoms are unchanged. Modifying factors: The symptoms are alleviated by nothing, the symptoms are aggravated by nothing. Associated signs and symptoms: Pertinent positives: diarrhea. The patient has not experienced similar symptoms in the past. The patient has not recently seen a physician. Patient reports cough and congestion for 3 days with some diarrhea that started today. Denies fever, abdominal pain, nausea, vomiting. Historical: - Allergies: 18:29 No Known Allergies; cm10 - PMHx: 18:29 Gout; Hypertension; Hypothyroidism; cm10 - Immunization history:: Adult Immunizations unknown. - Social history:: Smoking status: Patient denies any tobacco usage or history of. ROS: 19:21 Constitutional: Negative for fever, chills, and weight loss, kb 19:21 ENT: Positive for sinus congestion, 19:21 Respiratory: Positive for cough, 19:21 Abdomen/GI: Positive for diarrhea, Negative for abdominal pain, nausea and vomiting, 19:21 All other systems are negative, Exam: 19:21 Constitutional: This is a well developed, well nourished patient who is awake, alert, kb and in no acute distress. Head/Face: Normocephalic, atraumatic. ENT: Moist Mucous membranes Cardiovascular: Regular rate Respiratory: Respirations even and unlabored. No increased work of breathing. Talking in full sentences Abdomen/GI: Soft, non-tender. No distention Skin: Warm, dry with normal turgor. Normal color. MS/ Extremity: Pulses equal, no cyanosis. Neurovascular intact. Full, normal range of motion. Neuro: Awake and alert, GCS 15, oriented to person, place, time, and situation. Moves all extremities. Normal gait. Vital Signs: 18:28 BP 153 / 82; Pulse 83; Resp 16; Temp 98.6(TE); Pulse Ox 100% ; Weight 83.01 kg (R); cm10 Height 5 ft. 3 in. (R); 18:28 Body Mass Index 32.42 (83.01 kg, 160.02 cm) cm10 MDM: 18:24 Patient medically screened. ec2 19:22 Differential Diagnosis: Bronchitis Influenza Upper Respiratory Infection Viral Syndrome kb Pneumonia Other covid. Data reviewed: vital signs, nurses notes. 19:34 Counseling: I had a detailed discussion with the patient and/or guardian regarding the kb historical points, exam findings, and any diagnostic results supporting the discharge/admit diagnosis, lab results, radiology results, the need for outpatient follow up, a family practitioner, to return to the emergency department if symptoms worsen or persist or if there are any questions or concerns that arise at home. 03/02 18:38 Order name: Flu; Complete Time: 19:07 kb 03/02 18:38 Order name: COVID-19 SARS RT PCR; Complete Time: 19:33 kb 03/02 18:38 Order name: Chest Single View XRAY; Complete Time: 19:00 kb Administered Medications: 19:17 Drug: Tussionex Pennkinetic ER PO Suspension 5 ml PO once Route: PO; mb9 19:44 Follow up: Response: No adverse reaction as6 Disposition Summary: 03/02/23 19:41 Discharge Ordered Notes: Location: Home kb Condition: Stable kb Diagnosis - Acute upper respiratory infection, unspecified kb Followup: kb - With: Emergency Department - When: As needed - Reason: Worsening of condition Followup: kb - With: Private Physician - When: 2 - 3 days - Reason: Recheck today's complaints, Continuance of care, Re-evaluation by your physician Discharge Instructions: - Discharge Summary Sheet kb - Upper Respiratory Infection, Adult, [id number] kb - Viral Respiratory Infection, [id number] kb Forms: - Medication Reconciliation Form kb - Thank You Letter kb - Antibiotic Education kb - Prescription Opioid Use kb - Patient Portal Instructions kb - Leadership Thank You Letter kb Prescriptions: - Prednisone 20 mg Oral Tablet - take 1 tablet ORAL route once daily for 5 days; 5 tablet; Refills: 0, Product kb Selection Permitted - Tessalon Perles 100 mg Oral Capsule - take 1 capsule ORAL route every 8 hours As needed; 15 capsule; Refills: 0, kb Product Selection Permitted Signatures: Dispatcher [employer] Matilde Palacio FNP-C FNP-Ckb Breneman, Mary Beth RN RN mb9 Quin Tavares RN RN cm10 Bob Carpio MD MD ec2 Zach Tapia RN as6 Corrections: (The following items were deleted from the chart) 18:29 18:29 Allergies: PENICILLINS; cm10 cm10
--- NOTE | 2023-03-02 19:42 | ER ---
Nurse's Notes [facility] Name: Sagrario Low Age: 72 yrs Sex: Female : 1950 Arrival Date: 03/02/2023 Time: 18:19 Bed 12 Private MD: Diagnosis: Acute upper respiratory infection, unspecified Presentation: 03/02 18:28 Chief complaint: Patient states: cough, congestion, and diarrhea onset a couple days cm10 ago. Pt denies fevers. No sick contacts. Coronavirus screen: Vaccine status: Patient reports receiving the 2nd dose of the covid vaccine. Client denies travel out of the [place] in the last 14 days. Ebola Screen: Patient denies travel to an Ebola-affected area in the 21 days before illness onset. No symptoms or risks identified at this time. Resp Distress? No respiratory distress is noted at this time. Initial Sepsis Screen: Does the patient meet any 2 criteria? No. Patient's initial sepsis screen is negative. Does the patient have a suspected source of infection? No. Patient's initial sepsis screen is negative. Risk Assessment: Do you want to hurt yourself or someone else? Patient reports no desire to harm self or others. Onset of symptoms was March 02, 2023. 18:28 Method Of Arrival: Ambulatory cm10 18:28 Acuity: ERIC 4 cm10 Historical: - Allergies: 18:29 No Known Allergies; cm10 - PMHx: 18:29 Gout; Hypertension; Hypothyroidism; cm10 - Immunization history:: Adult Immunizations unknown. - Social history:: Smoking status: Patient denies any tobacco usage or history of. Screenin:31 [facility] ED Fall Risk Assessment (Adult) History of falling in the last 3 months, ph including since admission No falls in past 3 months (0 pts) Score/Fall Risk Level 0 - 2 = Low Risk Oriented to surroundings, Maintained a safe environment, Hourly rounding (assess needs \T\ fall precautionary measures) done, Used ambulatory aids as needed (educated on \T\ assisted with). Abuse screen: Denies threats or abuse. Denies injuries from another. Nutritional screening: No deficits noted. Tuberculosis screening: No symptoms or risk factors identified. Assessment: 18:45 General: Appears in no apparent distress. comfortable, Behavior is calm, cooperative, ph appropriate for age. Pain: Denies pain. Neuro: Level of Consciousness is awake, alert, obeys commands, Oriented to person, place, time, situation. Cardiovascular: Capillary refill < 3 seconds in bilateral fingers Patient's skin is warm and dry. Respiratory: Reports cough that is Airway is patent Respiratory effort is even, unlabored, Respiratory pattern is regular, symmetrical. GI: Reports diarrhea, Patient currently denies abdominal pain. EENT: Reports nasal congestion nasal discharge. Derm: Skin is pink, warm \T\ dry. Musculoskeletal: Circulation, motion, and sensation intact. Range of motion: intact in all extremities. Vital Signs: 18:28 BP 153 / 82; Pulse 83; Resp 16; Temp 98.6(TE); Pulse Ox 100% ; Weight 83.01 kg (R); cm10 Height 5 ft. 3 in. (R); 18:28 Body Mass Index 32.42 (83.01 kg, 160.02 cm) cm10 ED Course: 18:21 Patient arrived in ED. mr 18:23 Bob Carpio MD is Attending Physician. ec2 18:27 [facility] Low FNP-C [facility]. kb 18:29 Triage completed. cm10 18:30 Arm band placed on Patient placed in an exam room, on a stretcher. cm10 18:31 Sagrario Vásquez, RN is Primary Nurse. ph 18:32 Patient has correct armband on for positive identification. Bed in low position. Call ph light in reach. Side rails up X 1. Pulse ox on. NIBP on. 18:45 No provider procedures requiring assistance completed. COVID swab sent to lab. Flu ph and/or RSV swab sent to lab. 18:48 Chest Single View XRAY In Process Unspecified. EDMS 19:47 Provided Education on: rx teaching, follow up. as6 19:47 Patient did not have IV access during this emergency room visit. as6 Administered Medications: 19:17 Drug: Tussionex Pennkinetic ER PO Suspension 5 ml PO once Route: PO; mb9 19:44 Follow up: Response: No adverse reaction as6 Medication: 18:31 VIS not applicable for this client. ph Outcome: 19:41 Discharge ordered by MD. kb 19:47 Discharged to home ambulatory, with significant other, as6 19:47 Condition: stable 19:47 Discharge instructions given to patient, family, Instructed on discharge instructions, follow up and referral plans. medication usage, Demonstrated understanding of instructions, follow-up care, medications, Prescriptions given X 2, 19:48 Patient left the ED. as6 Signatures: Dispatcher [employer] EDMatilde Tripp, TERI-C IMPROVEMENT SPECIALIST-Tana OsborneCandie brooks, [facility] Reg mr VásquezSagrario, RN JOAN ph Zach Tapia RN RN as6 Candie Bacon RN RN mb9 Quin Tavares RN RN cm10 Bob Carpio MD MD ec2 Corrections: (The following items were deleted from the chart) 18:29 18:29 Allergies: PENICILLINS; cm10 cm10
[2023-03-03 16:07] VITALS: BP 153/82; TEMP 98.6; O2SAT 100
== END 2023-03-02 19:48 | disposition home or self-care (01) ==
LOC: ER 18:19
DX: J06.9 Acute upper respiratory infection, unspecified (principal); Z20.822 Contact with and (suspected) exposure to COVID-19
CPT/HCPCS: 71045; 87635; 87804

== ENCOUNTER 2023-03-19 06:32 | Emergency (ER) | payer OTHER ==
--- NOTE | 2023-03-19 07:18 | EDPHYS ---
Physician Documentation [facility] Name: Sagrario Low Age: 72 yrs Sex: Female : 1950 Arrival Date: 03/19/2023 Time: 06:32 Bed 18 Private MD: ED Physician Bob Carpio HPI: 03/19 07:16 This 72 yrs old Black Female presents to ER via Unassigned with complaints of Back Pain.ec2 07:16 Patient arrives today due to concern for left-sided back pain radiating to the left ec2 leg. Patient with history of sciatica, status for the same. Patient reports no falls or trauma, denies any red flag symptoms. Patient reports that she has hydrocodone at home however does not like taking this due to medication reaction. Patient states that she takes meloxicam with some improvement in symptoms. . Historical: - Allergies: 07:10 No Known Allergies; rs5 - PMHx: 07:10 Gout; Hypertension; Hypothyroidism; rs5 - PSHx: 07:10 None; rs5 - Immunization history:: Adult Immunizations unknown. - Social history:: Smoking status: Patient denies any tobacco usage or history of. ROS: 07:16 Constitutional: as per hpi ec2 Exam: 07:16 Constitutional: GEN: NAD Head: atraumatic Eyes: EOMI Ears: External ears are ec2 normal. CV: regular rate LUNGS: no respiratory distress ABD: non-distended SKIN: no evidence of rashes MSK: Positive left-sided straight leg raise test, intact strength in the bilateral lower extremities, intact sensation bilateral lower extremities NEURO: moves all extremities equally Vital Signs: 07:03 BP 140 / 80; Pulse 77; Resp 17; Temp 97.8(O); Pulse Ox 99% on R/A; rs5 07:10 BP 138 / 78; Pulse 80; Resp 18; Temp 97.9(O); Pulse Ox 99% ; rs5 07:30 BP 142 / 77; Pulse 80; Resp 17; Pulse Ox 99% on R/A; rs5 MDM: 07:00 Patient medically screened. ec2 07:16 Data reviewed: vital signs. ec2 07:16 ED course: Patient arrives today for evaluation of left-sided back pain radiating to ec2 the left leg with a history of sciatica. Examination remarkable for MSK findings as noted above. We will give the patient a muscle relaxer, Toradol, steroid and discharged prescription for muscle relaxer and steroid. I considered other process such as vertebral fractures, spinal cord pathology however patient with lack of traumatic injury and lack of red flag symptoms to indicate any of these, accordingly I do not feel she would benefit from any CT imaging or MR imaging.. Administered Medications: 07:18 Drug: Ketorolac IM 30 mg IM once Route: IM; Site: left deltoid; rs5 07:30 Follow up: Response: No adverse reaction rs5 07:18 Drug: predniSONE PO 20 mg PO once Route: PO; rs5 07:30 Follow up: Response: No adverse reaction rs5 07:18 Drug: Cyclobenzaprine PO 10 mg PO once Route: PO; rs5 07:30 Follow up: Response: No adverse reaction rs5 Disposition Summary: 03/19/23 07:18 Discharge Ordered Notes: Location: Home ec2 Condition: Stable ec2 Diagnosis - Sciatica, left side ec2 Discharge Instructions: - Discharge Summary Sheet ec2 - Sciatica ec2 Forms: - Medication Reconciliation Form ec2 - Thank You Letter ec2 - Antibiotic Education ec2 - Prescription Opioid Use ec2 - Patient Portal Instructions ec2 - Leadership Thank You Letter ec2 Prescriptions: - Prednisone 20 mg Oral Tablet - take 1 tablet ORAL route once daily for 5 days; 5 tablet; Refills: 0, Product ec2 Selection Permitted - Cyclobenzaprine 5 mg Oral Tablet - take 1 tablet ORAL route 3 times per day As needed; 15 tablet; Refills: 0, ec2 Product Selection Permitted Signatures: Johnathan Ardon RN RN rs5 Bob Carpio MD MD ec2
[2023-03-19] MEDS ORDERED: CYCLOBENZAPRINE 10 MG TAB ONE (07:35)
[2023-03-19] MEDS ORDERED: KETOROLAC 30 MG/ML INJ ONE (07:35)
[2023-03-19] MEDS ORDERED: predniSONE 10 MG TAB ONE (07:35)
--- NOTE | 2023-03-19 07:35 | ER ---
Nurse's Notes [facility] Name: Sagrario Low Age: 72 yrs Sex: Female : 1950 Arrival Date: 03/19/2023 Time: 06:32 Bed 18 Private MD: Diagnosis: Sciatica, left side Presentation: 03/19 07:10 Acuity: ERIC 4 rs5 07:10 Chief complaint: Patient states: My sciatica is acting up again. Coronavirus screen: At rs5 this time, the client does not indicate any symptoms associated with coronavirus-19. Ebola Screen: No symptoms or risks identified at this time. Initial Sepsis Screen: Does the patient meet any 2 criteria? No. Patient's initial sepsis screen is negative. Does the patient have a suspected source of infection? No. Patient's initial sepsis screen is negative. Risk Assessment: Do you want to hurt yourself or someone else? Patient reports no desire to harm self or others. Onset of symptoms was March 19, 2023. 07:10 Method Of Arrival: Ambulatory rs5 07:45 Onset of symptoms was March 18, 2023 at 07:45. rs5 Triage Assessment: 07:10 General: Appears in no apparent distress. uncomfortable, Behavior is calm, cooperative. rs5 Musculoskeletal: Range of motion: limited in left lower extremity. Historical: - Allergies: 07:10 No Known Allergies; rs5 - PMHx: 07:10 Gout; Hypertension; Hypothyroidism; rs5 - PSHx: 07:10 None; rs5 - Immunization history:: Adult Immunizations unknown. - Social history:: Smoking status: Patient denies any tobacco usage or history of. Screenin:10 [facility] ED Fall Risk Assessment (Adult) History of falling in the last 3 months, rs5 including since admission No falls in past 3 months (0 pts) Confusion or Disorientation No (0 pts) Intoxicated or Sedated No (0 pts) Impaired Gait No (0 pts) Mobility Assist Device Used No (0 pt) Altered Elimination No (0 pt) Score/Fall Risk Level 0 - 2 = Low Risk Oriented to surroundings, Maintained a safe environment. 07:10 Abuse screen: Denies threats or abuse. Nutritional screening: No deficits noted. rs5 Tuberculosis screening: No symptoms or risk factors identified. Assessment: 07:10 General: Appears in no apparent distress. uncomfortable, Behavior is calm, cooperative. rs5 Pain: Complains of pain in left hip Pain radiates to left lower extremity Pain currently is 6 out of 10 on a pain scale. Quality of pain is described as aching, Pain began 2-3 days ago. Is continuous. Neuro: Level of Consciousness is awake, alert, obeys commands, Oriented to person, place, time, situation, Photo Booth Operator are equal bilaterally Moves all extremities. Gait is steady, Intact. Cardiovascular: Heart tones S1 S2 present Rhythm is regular. Respiratory: Airway is patent Respiratory effort is even, unlabored, Respiratory pattern is regular, symmetrical, Breath sounds are clear bilaterally. GI: Abdomen is round non-distended, Bowel sounds present X 4 quads. Abd is soft and non tender X 4 quads. : No signs and/or symptoms were reported regarding the genitourinary system. EENT: No signs and/or symptoms were reported regarding the EENT system. Derm: Skin is intact, Skin is dry, Skin is normal, Skin temperature is warm. Musculoskeletal: Range of motion: limited in left lower extremity. 07:30 Reassessment: Patient states feeling better. rs5 Vital Signs: 07:03 BP 140 / 80; Pulse 77; Resp 17; Temp 97.8(O); Pulse Ox 99% on R/A; rs5 07:10 BP 138 / 78; Pulse 80; Resp 18; Temp 97.9(O); Pulse Ox 99% ; rs5 07:30 BP 142 / 77; Pulse 80; Resp 17; Pulse Ox 99% on R/A; rs5 ED Course: 06:37 Patient arrived in ED. gm2 07:00 Bob Carpio MD is Attending Physician. ec2 07:10 Patient has correct armband on for positive identification. Bed in low position. Call rs5 light in reach. Side rails up X2. 07:10 Arm band placed on right wrist. rs5 07:20 Johnathan Ardon, JOAN is Primary Nurse. rs5 07:35 Patient did not have IV access during this emergency room visit. rs5 07:35 No provider procedures requiring assistance completed. rs5 08:23 Triage completed. rs5 Administered Medications: 07:18 Drug: Ketorolac IM 30 mg IM once Route: IM; Site: left deltoid; rs5 07:30 Follow up: Response: No adverse reaction rs5 07:18 Drug: predniSONE PO 20 mg PO once Route: PO; rs5 07:30 Follow up: Response: No adverse reaction rs5 07:18 Drug: Cyclobenzaprine PO 10 mg PO once Route: PO; rs5 07:30 Follow up: Response: No adverse reaction rs5 Medication: 07:35 VIS not applicable for this client. rs5 Outcome: 07:18 Discharge ordered by . [email or web address] 07:30 Discharged to home ambulatory, with family, rs5 07:30 Condition: stable 07:30 Discharge instructions given to patient, family, Instructed on discharge instructions, follow up and referral plans. Demonstrated understanding of instructions, follow-up care, medications, Prescriptions given X 2, 07:35 Patient left the ED. rs5 Signatures: Johnathan Ardon RN RN rs5 Bob Carpio MD MD ec2 Meghan Rogers 2 Corrections: (The following items were deleted from the chart) 08:24 07:10 Musculoskeletal: Range of motion: intact in all extremities, rs5 rs5 09:56 07:20 BP 140 / 80; Pulse 77bpm; Resp 17bpm; Pulse Ox 99% RA; Temp 97.8F Oral; rs5 rs5 09:56 07:45 BP 142 / 77; Pulse 80bpm; Resp 17bpm; Pulse Ox 99% RA; rs5 rs5
== END 2023-03-19 07:35 | disposition home or self-care (01) ==
LOC: ER 06:32
DX: M54.32 Sciatica, left side (principal)
CPT/HCPCS: 96372; 99284; J7512

== ENCOUNTER 2023-03-26 08:22 | Emergency (ER) | payer OTHER ==
[2023-03-26] MEDS ORDERED: DIAZEPAM 5 MG TABLET ONE (08:54)
[2023-03-26] MEDS ORDERED: dexAMETHasone 10 MG/ML VIAL ONE (08:55)
[2023-03-26] MEDS ORDERED: KETOROLAC 30 MG/ML INJ ONE (08:55)
[2023-03-26] MEDS ORDERED: ONDANSETRON 4 MG/2 ML VIAL ONE (08:55)
[2023-03-26] MEDS ORDERED: FENTANYL CITR 100 MCG/2 ML ONE (08:55)
[2023-03-26] MEDS ORDERED: NA CHLORIDE 0.9% 1,000 ML ONE (08:55)
[2023-03-26 09:08] LABS: Absolute Lymphocytes (CBC) 2.6 K/uL (0.7-4.9); Hematocrit 34.6 % (36.0-45.0); Lymphocytes % 46.4 % (15.3-44.8); MCV 95.1 fL (80-100); MPV 7.4 fL (7.6-11.3); Platelets 262 thou/uL (152-406); RBC Red Blood Cell Count 3.64 M/uL (3.86-4.86)
--- NOTE | 2023-03-26 09:19 | RAD REPORT ---
EXAM DESCRIPTION: CTSpine Lumbar Wo Con03/26/2023 9:04 am CLINICAL HISTORY: Left leg radiculopathy COMPARISON: None TECHNIQUE: Computed axial tomography lumbar spine was obtained with coronal and sagittal reconstruct ion. All CT scans are performed using dose optimization technique as appropriate and may include automated exposure control or mA/KV adjustment according to patient size. FINDINGS: Small right lateral disc herniation L4-5 narrows the right neural foramina Mild spondylosis involves the lumbar spine. No fracture. No dislocation IMPRESSION: Small right lateral disc herniation L4-5 Mild spondylosis If patient's symptoms persist MRI may be helpful for further evaluation
[2023-03-26 09:25] LABS: Albumin 3.1 g/dL (3.4-5.0); Bilirubin Total 0.4 mg/dL (0.2-1.0); Potassium 4.4 mEq/L (3.5-5.1); Protein, Total 6.6 g/dL (6.4-8.2)
--- NOTE | 2023-03-26 09:31 | RAD REPORT ---
EXAM DESCRIPTION: USExtrem Venous W Compress Bil03/26/2023 9:19 am CLINICAL HISTORY: Leg pain COMPARISON: none FINDINGS: The common femoral, superficial femoral, greater saphenous, popliteal and posterior tibial veins bilaterally are compressible and demonstrate augmentation. Doppler demonstrates good flow. Grayscale, color and spectral analysis performed on all vessels IMPRESSION: No evidence of deep venous thrombosis involving either lower extremity.
--- NOTE | 2023-03-26 09:46 | EDPHYS ---
Physician Documentation [facility] Name: Sagrario Low Age: 72 yrs Sex: Female : 1950 Arrival Date: 03/26/2023 Time: 08:22 Bed 8 Private MD: ED Physician Pelon Sr HPI: 03/26 08:35 This 72 yrs old Black Female presents to ER via Unassigned with complaints of Leg Pain. naomi 08:35 The patient presents with decreased range of motion, pain, that is acute. The naomi complaints affect the lateral aspect of left thigh, left hamstring, medial aspect of left thigh, left quadriceps and left knee. Context: The problem was sustained at an unknown site, resulted from an unknown cause. Onset: The symptoms/episode began/occurred 3 day(s) ago. Modifying factors: The symptoms are alleviated by nothing. remaining still, the symptoms are aggravated by movement. Associated signs and symptoms: The patient has no apparent associated signs or symptoms. Treatment prior to arrival includes: no previous treatment. Severity of symptoms: At their worst the symptoms were mild, in the emergency department the symptoms are unchanged. The patient has experienced similar episodes in the past, multiple times. Historical: - Allergies: 08:43 No Known Allergies; iw - PMHx: 08:43 Hypertensive disorder; Hypothyroidism; iw - PSHx: 08:43 Cholecystectomy; section; knee; iw - Immunization history:: Adult Immunizations up to date. - Social history:: Smoking status: Patient denies any tobacco usage or history of. - Family history:: not pertinent. ROS: 08:35 Constitutional: Negative for fever, chills, and weight loss, Eyes: Negative for injury, naomi pain, redness, and discharge, ENT: Negative for injury, pain, and discharge, Neck: Negative for injury, pain, and swelling, Cardiovascular: Negative for chest pain, palpitations, and edema, Respiratory: Negative for shortness of breath, cough, wheezing, and pleuritic chest pain, Abdomen/GI: Negative for abdominal pain, nausea, vomiting, diarrhea, and constipation, Back: Negative for injury and pain, : Negative for injury, bleeding, discharge, and swelling, Skin: Negative for injury, rash, and discoloration, Neuro: Negative for headache, weakness, numbness, tingling, and seizure, Psych: Negative for depression, anxiety, suicide ideation, homicidal ideation, and hallucinations, Allergy/Immunology: Negative for hives, rash, and allergies, Endocrine: Negative for neck swelling, polydipsia, polyuria, polyphagia, and marked weight changes, Hematologic/Lymphatic: Negative for swollen nodes, abnormal bleeding, and unusual bruising, 08:35 MS/extremity: Positive for decreased range of motion, pain, Exam: 08:35 Constitutional: This is a well developed, well nourished patient who is awake, alert, naomi and in no acute distress. Head/Face: Normocephalic, atraumatic. Eyes: Pupils equal round and reactive to light, extra-ocular motions intact. Lids and lashes normal. Conjunctiva and sclera are non-icteric and not injected. Cornea within normal limits. Periorbital areas with no swelling, redness, or edema. ENT: Nares patent. No nasal discharge, no septal abnormalities noted. Tympanic membranes are normal and external auditory canals are clear. Oropharynx with no redness, swelling, or masses, exudates, or evidence of obstruction, uvula midline. Mucous membranes moist. Neck: Trachea midline, no thyromegaly or masses palpated, and no cervical lymphadenopathy. Supple, full range of motion without nuchal rigidity, or vertebral point tenderness. No Meningismus. Chest/axilla: Normal chest wall appearance and motion. Nontender with no deformity. No lesions are appreciated. Cardiovascular: Regular rate and rhythm with a normal S1 and S2. No gallops, murmurs, or rubs. Normal PMI, no JVD. No pulse deficits. Respiratory: Lungs have equal breath sounds bilaterally, clear to auscultation and percussion. No rales, rhonchi or wheezes noted. No increased work of breathing, no retractions or nasal flaring. Abdomen/GI: Soft, non-tender, with normal bowel sounds. No distension or tympany. No guarding or rebound. No evidence of tenderness throughout. Female : Normal external genitalia. Skin: Warm, dry with normal turgor. Normal color with no rashes, no lesions, and no evidence of cellulitis. MS/ Extremity: Pulses equal, no cyanosis. Neurovascular intact. Full, normal range of motion. Neuro: Awake and alert, GCS 15, oriented to person, place, time, and situation. Cranial nerves II-XII grossly intact. Motor strength 5/5 in all extremities. Sensory grossly intact. Cerebellar exam normal. Normal gait. Psych: Awake, alert, with orientation to person, place and time. Behavior, mood, and affect are within normal limits. 08:35 Back: pain, that is mild, of the lumbar area and left low back, ROM is painless, normal spinal alignment noted, CVA tenderness, that is mild, that is moderate, vertebral tenderness, is not appreciated, muscle spasm, is appreciated in the left low back, left mid back, right mid back and right low back, 08:35 Musculoskeletal/extremity: DVT Exam: no swelling, no tenderness, negative Homans' sign noted on exam, no appreciated bluish discoloration, no erythema, no increased warmth, pain, that is mild, of the lateral aspect of left thigh, left hamstring, medial aspect of left thigh and left quadriceps, Vital Signs: 08:42 BP 163 / 88; Pulse 71; Resp 16; Temp 98; Pulse Ox 100% on R/A; Weight 84.37 kg; Height iw 5 ft. 3 in. ; Pain 8/10; 09:05 BP 163 / 88; Pulse 74; Resp 16; Pulse Ox 99% ; ko1 09:42 BP 166 / 77; Pulse 65; Resp 16; Pulse Ox 99% ; ko1 08:42 Body Mass Index 32.95 (84.37 kg, 160.02 cm) iw 08:42 Pain Scale: Adult NIH Stroke Scale Scores: 08:35 NIHSS Score: 0 naomi MDM: 08:25 Patient medically screened. naomi 08:40 Differential diagnosis: contusion, tendonitis, arthritis, chronic back pain, Neoplasm naomi Obesity. Data reviewed: vital signs, nurses notes, lab test result(s), radiologic studies, CT scan. Consideration of Admission/Observation Escalation of care including admission/observation considered. I considered the following discharge prescriptions or medication management in the emergency department Medications were administered in the Emergency Department. See MAR. Test considered but Not performed: MRI: no mri spine. 03/26 08:31 Order name: CBC with Diff naomi 03/26 08:31 Order name: Comprehensive Metabolic Panel; Complete Time: 09:43 naomi 03/26 08:31 Order name: CT Lumbar Spine Wo Con; Complete Time: :43 [facility] 03/26 08:31 Order name: US Extremity Venous W Compression Roland; Complete Time: 09:43 naomi Administered Medications: 08:58 Drug: Diazepam PO 5 mg PO once Route: PO; ko1 09:48 Follow up: Response: No adverse reaction ko1 08:58 Drug: Ondansetron IVP 4 mg IVP once; over 2 minutes Route: IVP; Site: left antecubital; ko1 09:30 Follow up: Response: No adverse reaction ko1 08:59 Drug: Ketorolac IVP 15 mg IVP once Route: IVP; Site: left antecubital; ko1 09:49 Follow up: Response: No adverse reaction ko1 09:00 Drug: NS 0.9% IV 500 ml IV at bolus once Route: IV; Rate: bolus; Site: left antecubital;ko1 09:30 Follow up: Response: No adverse reaction; IV Status: Completed infusion; IV Intake: ko1 500ml 09:10 Drug: Decadron - Dexamethasone IVP 10 mg IVP once Route: IVP; Site: left antecubital; ko1 09:48 Follow up: Response: No adverse reaction ko1 09:14 Drug: NS 0.9% IV 1000 ml IV at 125 ml/hr continuous Route: IV; Rate: 125 ml/hr; Site: ko1 left antecubital; 09:49 Follow up: IV Status: Completed infusion; IV Intake: 125ml ko1 09:14 Drug: fentaNYL (PF) IVP 50 mcg IVP once Route: IVP; Site: left antecubital; ko1 09:30 Follow up: Response: No adverse reaction; Pain is decreased ko1 Disposition Summary: 03/26/23 09:45 Discharge Ordered Notes: Location: Home naomi Problem: new naomi Symptoms: have improved naomi Condition: Stable naomi Diagnosis - Sciatica, left side naomi - Low back pain naomi - Pain in left leg naomi - Spondylolysis, lumbar region naomi Followup: naomi - With: Private Physician - When: 2 - 3 days - Reason: Recheck today's complaints, Continuance of care, Re-evaluation by your physician Followup: naomi - With: Miles Valenzuela MD - When: 2 - 3 days - Reason: Recheck today's complaints, Re-evaluation by your physician Discharge Instructions: - Discharge Summary Sheet naomi - Acute Back Pain, Adult naomi - Musculoskeletal Pain naomi - Sciatica naomi - Sciatica, [id number] [facility] Forms: - Medication Reconciliation Form [facility] - Thank You Letter naomi - Antibiotic Education naomi - Prescription Opioid Use naomi - Patient Portal Instructions [facility] - Leadership Thank You Letter [facility] Prescriptions: - acetaminophen-codeine 300-30 mg Oral tablet - take 2 tablet ORAL route every 6 hours as needed for pain; 20 tablet; Refills: [facility] 0, Product Selection Permitted - dexamethasone 2 mg Oral tablet - take 1 tablet ORAL route every 12 hours; 8 tablet; Refills: 0, Product [facility] Selection Permitted - diclofenac sodium 50 mg Oral tablet, delayed release (enteric coated) - take 1 tablet ORAL route every 12 hours as needed for pain; 20 tablet; Refills: [facility] 0, Product Selection Permitted - Cyclobenzaprine 5 mg Oral Tablet - take 1 tablet ORAL route 3 times per day As needed; 15 tablet; Refills: 0, [facility] Product Selection Permitted NIH Stroke Scale - NIH Stroke Score Date: 03/26/2023 Time: 08:35 Total Score = 0 10. Dysarthria (speech clarity - read or repeat words) - 0(Normal) 11. Extinction and Inattention (visual/tactile/auditory/spatial/personal) - 0(No abnormality) 1a. Level of Consciousness (LOC) - 0(Alert) 1b. Level of Consciousness (LOC) (Month \T\ Age) - 0(Both) 1c. LOC Commands (Open \T\ Closes Eyes/Operations Dispatcher) - 0(Both) 2. Best Gaze (Lateral Gaze Paresis) - 0(Normal) 3. Visual Field Loss - 0(No visual loss) 4. Facial Palsy - 0(Normal) 5a. Left Arm: Motor (10-second hold) - 0(No drift) 5b. Right Arm: Motor (10-second hold) - 0(No drift) 6a. Left Leg: Motor (5-second hold - always test supine) - 0(No drift) 6b. Right Leg: Motor (5-second hold - always test supine) - 0(No drift) 7. Limb Ataxia (finger/nose \T\ heel/chandler - test with eyes open) - 0(Absent) 8. Sensory Loss (pinprick arms/legs/face) - 0(Normal) 9. Best Language: Aphasia (description/naming/reading) - 0(No aphasia) Initials: [facility] Signatures: Dispatcher [employer] Pelon Wu MD MD cha Williams, Irene, RN RN iw Sima Ulloa RN RN ko1 Corrections: (The following items were deleted from the chart) 08:40 PMHx: Gout; [facility] naomi 08:40 PMHx: Hypertension; [facility] 08:40 PMHx: Hypothyroidism; [facility] 08:43 PMHx: Hyperthyroidism; iw iw
--- NOTE | 2023-03-26 09:46 | ER ---
Nurse's Notes [facility] Name: Sagrario Low Age: 72 yrs Sex: Female : 1950 Arrival Date: 03/26/2023 Time: 08:22 Bed 8 Private MD: Diagnosis: Sciatica, left side;Low back pain;Pain in left leg;Spondylolysis, lumbar region Presentation: 03/26 08:42 Chief complaint: Patient states: left upper leg pain X 2 weeks, no injury , pain 12/16. iw Coronavirus screen: At this time, the client does not indicate any symptoms associated with coronavirus-19. Ebola Screen: Patient negative for fever greater than or equal to 101.5 degrees Fahrenheit, and additional compatible Ebola Virus Disease symptoms Patient denies exposure to infectious person. Patient denies travel to an Ebola-affected area in the 21 days before illness onset. No symptoms or risks identified at this time. Initial Sepsis Screen: Does the patient meet any 2 criteria? No. Patient's initial sepsis screen is negative. Does the patient have a suspected source of infection? No. Patient's initial sepsis screen is negative. Risk Assessment: Do you want to hurt yourself or someone else? Patient reports no desire to harm self or others. Onset of symptoms was March 12, 2023. 08:42 Method Of Arrival: Wheelchair iw 08:42 Acuity: ERIC 3 iw Historical: - Allergies: 08:43 No Known Allergies; iw - PMHx: 08:43 Hypertensive disorder; Hypothyroidism; iw - PSHx: 08:43 Cholecystectomy; section; knee; iw - Immunization history:: Adult Immunizations up to date. - Social history:: Smoking status: Patient denies any tobacco usage or history of. - Family history:: not pertinent. Screenin:[address] [facility] ED Fall Risk Assessment (Adult) History of falling in the last 3 months, ko1 including since admission No falls in past 3 months (0 pts) Confusion or Disorientation No (0 pts) Intoxicated or Sedated No (0 pts) Impaired Gait No (0 pts) Mobility Assist Device Used No (0 pt) Altered Elimination No (0 pt) Score/Fall Risk Level 0 - 2 = Low Risk Oriented to surroundings, Maintained a safe environment, Educated pt \T\ family on fall prevention, incl call for assistance when getting out of bed, Assessed \T\ reinforced patient's understanding of fall precautions, Provided non-skid footwear, Hourly rounding (assess needs \T\ fall precautionary measures) done, Used ambulatory aids as needed (educated on \T\ assisted with), Used gait belt as appropriate. Abuse screen: Denies threats or abuse. Denies injuries from another. Nutritional screening: No deficits noted. Tuberculosis screening: No symptoms or risk factors identified. Assessment: 09:05 General: Appears in no apparent distress. comfortable, Behavior is calm, cooperative, ko1 appropriate for age. Pain: Complains of pain in left leg and right low back and right mid back and left mid back and left low back and lumbar area and left knee and left quadriceps and medial aspect of left thigh and left hamstring and lateral aspect of left thigh. Neuro: No deficits noted. Cardiovascular: No deficits noted. Respiratory: No deficits noted. GI: No deficits noted. : No deficits noted. EENT: No deficits noted. Derm: No deficits noted. Musculoskeletal: Reports pain in left leg. Vital Signs: 08:42 BP 163 / 88; Pulse 71; Resp 16; Temp 98; Pulse Ox 100% on R/A; Weight 84.37 kg; Height iw 5 ft. 3 in. ; Pain 8/10; 09:05 BP 163 / 88; Pulse 74; Resp 16; Pulse Ox 99% ; ko1 09:42 BP 166 / 77; Pulse 65; Resp 16; Pulse Ox 99% ; ko1 08:42 Body Mass Index 32.95 (84.37 kg, 160.02 cm) iw 08:42 Pain Scale: Adult NIH Stroke Scale Scores: 08:35 NIHSS Score: 0 naomi ED Course: 08:24 Patient arrived in ED. mr 08:24 Pelon Sr MD is Attending Physician. naomi 08:43 Triage completed. iw 08:43 Arm band placed on. iw 08:43 Client placed on continuous cardiac and pulse oximetry monitoring. NIBP monitoring mb4 applied. Pulse ox on. NIBP on. 08:49 Comprehensive Metabolic Panel Sent. ko1 08:49 CBC with Diff Sent. ko1 08:50 Inserted saline lock: 22 gauge in left antecubital area, using aseptic technique. ko1 08:58 Sima Ulloa RN is Primary Nurse. ko1 09:05 CT Lumbar Spine Wo Con In Process Unspecified. EDMS 09:05 Patient has correct armband on for positive identification. Placed in gown. Bed in low ko1 position. Call light in reach. Side rails up X2. Provided Education on: labs/meds. Door closed. Noise minimized. Warm blanket given. 09:21 US Extremity Venous W Compression Roland In Process Unspecified. EDMS 09:45 Miles Valenzuela MD is Referral Physician. [facility] 09:50 No provider procedures requiring assistance completed. IV discontinued, intact, ko1 bleeding controlled, No redness/swelling at site. Pressure dressing applied. Administered Medications: 08:58 Drug: Diazepam PO 5 mg PO once Route: PO; ko1 09:48 Follow up: Response: No adverse reaction ko1 08:58 Drug: Ondansetron IVP 4 mg IVP once; over 2 minutes Route: IVP; Site: left antecubital; ko1 09:30 Follow up: Response: No adverse reaction ko1 08:59 Drug: Ketorolac IVP 15 mg IVP once Route: IVP; Site: left antecubital; ko1 09:49 Follow up: Response: No adverse reaction ko1 09:00 Drug: NS 0.9% IV 500 ml IV at bolus once Route: IV; Rate: bolus; Site: left antecubital;ko1 09:30 Follow up: Response: No adverse reaction; IV Status: Completed infusion; IV Intake: ko1 500ml 09:10 Drug: Decadron - Dexamethasone IVP 10 mg IVP once Route: IVP; Site: left antecubital; ko1 09:48 Follow up: Response: No adverse reaction ko1 09:14 Drug: NS 0.9% IV 1000 ml IV at 125 ml/hr continuous Route: IV; Rate: 125 ml/hr; Site: ko1 left antecubital; 09:49 Follow up: IV Status: Completed infusion; IV Intake: 125ml ko1 09:14 Drug: fentaNYL (PF) IVP 50 mcg IVP once Route: IVP; Site: left antecubital; ko1 09:30 Follow up: Response: No adverse reaction; Pain is decreased ko1 Medication: 09:05 VIS not applicable for this client. ko1 Intake: 09:30 IV: 500ml; Total: 500ml. ko1 09:49 IV: 125ml; Total: 625ml. ko1 Outcome: 09:45 Discharge ordered by . naomi 10:00 Discharged to home ambulatory, with family, ko1 10:00 Condition: improved 10:00 Discharge instructions given to patient, family, Instructed on discharge instructions, follow up and referral plans. medication usage, Demonstrated understanding of instructions, follow-up care, medications, Prescriptions given X 4, 10:01 Patient left the ED. ko1 NIH Stroke Scale - NIH Stroke Score Date: 03/26/2023 Time: 08:35 Total Score = 0 10. Dysarthria (speech clarity - read or repeat words) - 0(Normal) 11. Extinction and Inattention (visual/tactile/auditory/spatial/personal) - 0(No abnormality) 1a. Level of Consciousness (LOC) - 0(Alert) 1b. Level of Consciousness (LOC) (Month \T\ Age) - 0(Both) 1c. LOC Commands (Open \T\ Closes Eyes/Paperhanger Apprentice) - 0(Both) 2. Best Gaze (Lateral Gaze Paresis) - 0(Normal) 3. Visual Field Loss - 0(No visual loss) 4. Facial Palsy - 0(Normal) 5a. Left Arm: Motor (10-second hold) - 0(No drift) 5b. Right Arm: Motor (10-second hold) - 0(No drift) 6a. Left Leg: Motor (5-second hold - always test supine) - 0(No drift) 6b. Right Leg: Motor (5-second hold - always test supine) - 0(No drift) 7. Limb Ataxia (finger/nose \T\ heel/chandler - test with eyes open) - 0(Absent) 8. Sensory Loss (pinprick arms/legs/face) - 0(Normal) 9. Best Language: Aphasia (description/naming/reading) - 0(No aphasia) Initials: naomi Signatures: Dispatcher [employer] EDMS Pelon Sr MD MD cha Rivera, Mary, Reg Vaughn mr Oralia Solo, Bev Bond RN, Kathy, RN RN ko1 Corrections: (The following items were deleted from the chart) 08:40 08:40 PMHx: Gout; naomi naomi 08:40 08:40 PMHx: Hypertension; naomi naomi 08:40 08:40 PMHx: Hypothyroidism; naomi naomi 08:44 08:43 PMHx: Hyperthyroidism; iw iw
[2023-03-26 10:09] LABS: Blood Morphology Comment NOT SEEN (NOT SEEN); Platelet Estimate ADEQ; White Blood Cell Scan OK (OK)
[2023-03-26 10:24] VITALS: TEMP 98
[2023-03-26 10:25] VITALS: O2SAT 99
[2023-03-26 10:26] VITALS: BP 166/77
== END 2023-03-26 10:01 | disposition home or self-care (01) ==
LOC: ER 08:22
DX: M54.32 Sciatica, left side (principal); M43.06 Spondylolysis, lumbar region; M54.50 Low back pain, unspecified
CPT/HCPCS: 96361; 85025; 36415; 80053; 72131; 93970; 96375; 96374; 99284; J3010; J1100; J2405; J7030

== ENCOUNTER → 2023-06-08 | Emergency (ER) | payer OTHER ==
--- NOTE | 2023-06-08 16:31 | RAD REPORT ---
EXAM DESCRIPTION: RAD - Foot Left 3 View - 06/08/2023 3:49 pm CLINICAL HISTORY: Left Foot pain FINDINGS: No fracture or dislocation is seen. Large plantar calcaneal spur. Moderate spur extends off posterior aspect of the calcaneus. Hallux valgus deformity
--- NOTE | 2023-06-08 16:42 | ER ---
Nurse's Notes [facility] Name: Sagrario Low Age: 73 yrs Sex: Female : 1950 Arrival Date: 06/08/2023 Time: 14:53 Bed IW1 Private MD: Diagnosis: Pain in left foot;Calcaneal spur, left foot Presentation: 06/08 15:00 Chief complaint: Patient states: LEFT HEEL PAIN x2 WK. Coronavirus screen: At this bp time, the client does not indicate any symptoms associated with coronavirus-19. Ebola Screen: No symptoms or risks identified at this time. Initial Sepsis Screen: Does the patient meet any 2 criteria? No. Patient's initial sepsis screen is negative. Does the patient have a suspected source of infection? No. Patient's initial sepsis screen is negative. Risk Assessment: Do you want to hurt yourself or someone else? Patient reports no desire to harm self or others. Onset of symptoms is unknown. 15:00 Method Of Arrival: Ambulatory bp 15:00 Acuity: ERIC 4 bp Triage Assessment: 15:00 General: Appears in no apparent distress. Behavior is calm, cooperative, appropriate bp for age. Pain: Complains of pain in medial aspect of left heel. Historical: - Allergies: 15:00 PENICILLINS; bp - PMHx: 15:00 Hypertensive disorder; Hypothyroidism; bp - PSHx: 15:00 section; knee; Cholecystectomy; bp - Immunization history:: Adult Immunizations up to date. - Social history:: Smoking status: Patient denies any tobacco usage or history of. - Family history:: not pertinent. - Hospitalizations: : No recent hospitalization is reported. Screenin:49 [facility] ED Fall Risk Assessment (Adult) History of falling in the last 3 months, rs5 including since admission No falls in past 3 months (0 pts). Abuse screen: Denies threats or abuse. Denies injuries from another. Nutritional screening: No deficits noted. Tuberculosis screening: No symptoms or risk factors identified. Assessment: 16:49 Reassessment: [place] HOME AMBULATORY WITH FAMILY. rs5 Vital Signs: 15:00 BP 141 / 83; Pulse 83; Resp 16; Temp 98.1; Pulse Ox 100% ; bp 16:48 BP 134 / 79; Pulse 85; Resp 16; Pulse Ox 98% ; rs5 ED Course: 14:56 Patient arrived in ED. im 14:56 Ron Wolfe MD is Attending Physician. rn 15:00 Arm band placed on. bp 15:02 Triage completed. bp 15:51 XRAY Foot LEFT 3 View In Process Unspecified. EDMS 16:49 Patient has correct armband on for positive identification. rs5 16:49 No provider procedures requiring assistance completed. Patient did not have IV access rs5 during this emergency room visit. Administered Medications: No medications were administered Medication: 16:49 VIS not applicable for this client. rs5 Outcome: 16:41 Discharge ordered by . rn 16:49 Discharged to home ambulatory, with family, rs5 16:49 Condition: stable 16:49 Discharge instructions given to patient, Instructed on discharge instructions, follow up and referral plans. Demonstrated understanding of instructions, follow-up care, 16:50 Patient left the ED. rs5 Signatures: Dispatcher [employer] [facility] Ron Wolfe MD MD rn Peltier, Brian, RN RN Johnathan Ponce RN RN rs5 Ade Boyle im
--- NOTE | 2023-06-08 16:42 | EDPHYS ---
Physician Documentation [facility] Name: Sagrario Lwo Age: 73 yrs Sex: Female : 1950 Arrival Date: 06/08/2023 Time: 14:53 Bed IW1 Private MD: ED Physician Ron Wolfe HPI: 06/08 15:23 This 73 yrs old Black Female presents to ER via Ambulatory with complaints of Foot Pain rn - left. 15:23 The patient presents with pain. The complaints affect the left foot. Onset: The rn symptoms/episode began/occurred 2 week(s) ago. Modifying factors: The symptoms are alleviated by nothing, the symptoms are aggravated by weight bearing. Severity of symptoms: At their worst the symptoms were mild, in the emergency department the symptoms are unchanged. The patient has not experienced similar symptoms in the past. The patient has not recently seen a physician. Patient reports 2 weeks of left heel pain. No fall or direct trauma. No weakness. Hurts to ambulate. No skin changes. No fever. No wounds.. Historical: - Allergies: 15:00 PENICILLINS; bp - PMHx: 15:00 Hypertensive disorder; Hypothyroidism; bp - PSHx: 15:00 section; knee; Cholecystectomy; bp - Immunization history:: Adult Immunizations up to date. - Social history:: Smoking status: Patient denies any tobacco usage or history of. - Family history:: not pertinent. - Hospitalizations: : No recent hospitalization is reported. ROS: 15:23 Constitutional: Negative for fever, chills, and weight loss, Cardiovascular: Negative rn for chest pain, palpitations, and edema, MS/Extremity: Positive for left heel pain Skin: Negative for injury, rash, and discoloration, Exam: 15:23 Constitutional: This is a well developed, well nourished patient who is awake, alert, rn and in no acute distress. MS/ Extremity: Pulses equal, no cyanosis. Neurovascular intact. Full, normal range of motion. Equal circumference. No wounds. No skin changes. No discoloration. Mild tenderness along left heel. Vital Signs: 15:00 BP 141 / 83; Pulse 83; Resp 16; Temp 98.1; Pulse Ox 100% ; bp 16:48 BP 134 / 79; Pulse 85; Resp 16; Pulse Ox 98% ; rs5 MDM: 14:57 Patient medically screened. rn 16:35 Differential diagnosis: fracture, sprain, arthritis. Data reviewed: vital signs, nurses rn notes, radiologic studies, plain films, and as a result, I will discharge patient. Counseling: I had a detailed discussion with the patient and/or guardian regarding the historical points, exam findings, and any diagnostic results supporting the discharge/admit diagnosis, radiology results, the need for outpatient follow up, to return to the emergency department if symptoms worsen or persist or if there are any questions or concerns that arise at home. Response to treatment: There is no appreciated change of the patient's symptoms at this time. Special discussion: I discussed with the patient/guardian in detail that at this point there is no indication for admission to the hospital. It is understood, however, that if the symptoms persist or worsen the patient needs to return immediately for re-evaluation. 06/08 15:03 Order name: XRAY Foot LEFT 3 View; Complete Time: 16:35 rn Administered Medications: No medications were administered Disposition Summary: 06/08/23 16:41 Discharge Ordered Notes: Location: Home rn Problem: new rn Symptoms: have improved rn Condition: Stable rn Diagnosis - Pain in left foot rn - Calcaneal spur, left foot rn Followup: rn - With: Private Physician - When: As needed - Reason: Recheck today's complaints, Re-evaluation by your physician Discharge Instructions: - Discharge Summary Sheet rn - Heel Spur rn - Foot Pain rn Forms: - Medication Reconciliation Form rn - Thank You Letter rn - Antibiotic churner - Prescription Opioid Use rn - Patient Portal Instructions rn - Leadership Thank You Letter rn Signatures: Dispatcher [employer] Ron Tejada MD MD rn Peltier, Brian, RN RN bp
[2023-06-08 19:12] VITALS: BP 134/79; TEMP 98.1; O2SAT 98
== END ==
LOC: ER 14:53
DX: M77.32 Calcaneal spur, left foot (principal); Z88.0 Allergy status to penicillin

== ENCOUNTER 2023-12-12 12:46 | Emergency (ER) | payer OTHER ==
[2023-12-12] MEDS ORDERED: KETOROLAC 30 MG/ML INJ ONE (13:01)
--- NOTE | 2023-12-12 13:33 | RAD REPORT ---
EXAM DESCRIPTION: RAD - Ribs Left - 12/12/2023 1:19 pm CLINICAL HISTORY: Left rib pain FINDINGS: No fracture is seen
--- NOTE | 2023-12-12 14:26 | ER ---
Nurse's Notes [facility] Name: Sagrario Low Age: 73 yrs Sex: Female : 1950 Arrival Date: 12/12/2023 Time: 12:46 Bed IW1 Private MD: Diagnosis: Strain of muscle and tendon of thorax Presentation: 12/11 12:56 Chief complaint: Upper left back pain x 1 week. Coronavirus screen: At this time, the hb client does not indicate any symptoms associated with coronavirus-19. Ebola Screen: No symptoms or risks identified at this time. Initial Sepsis Screen: Does the patient meet any 2 criteria? No. Patient's initial sepsis screen is negative. Does the patient have a suspected source of infection? No. Patient's initial sepsis screen is negative. Risk Assessment: Do you want to hurt yourself or someone else? Patient reports no desire to harm self or others. Onset of symptoms was December 06, 2023. 12:56 Method Of Arrival: Ambulatory hb 12:56 Acuity: ERIC 4 hb Triage Assessment: 12:56 General: Appears in no apparent distress. Behavior is calm, cooperative. Pain: Pain hb currently is 7 out of 10 on a pain scale. Neuro: Level of Consciousness is awake, alert, obeys commands, Oriented to person, place, time, situation. Cardiovascular: Patient's skin is warm and dry. Respiratory: Respiratory effort is even, unlabored, Respiratory pattern is regular, symmetrical. Musculoskeletal: Capillary refill < 3 seconds, Reports left upper back pain. Historical: - Allergies: 12:59 No Known Allergies; hb - Home Meds: 12:59 levothyroxine oral [Active]; amlodipine oral [Active]; losartan oral [Active]; hb 13:01 Hydrocodone-Acetaminophen Oral [Active]; Cyclobenzaprine Oral [Active]; hb - PMHx: 12:58 Hypertensive disorder; Hypothyroidism; hb - PSHx: 12:58 section; Cholecystectomy; knee; hb - Immunization history:: Adult Immunizations up to date. - Infectious Disease History:: Denies. - Social history:: Smoking status: Patient denies any tobacco usage or history of. Screenin:00 [facility] ED Fall Risk Assessment (Adult) History of falling in the last 3 months, hb including since admission Yes- single mechanical fall (1 pt) Confusion or Disorientation No (0 pts) Intoxicated or Sedated No (0 pts) Impaired Gait No (0 pts) Mobility Assist Device Used No (0 pt) Altered Elimination No (0 pt) Score/Fall Risk Level 0 - 2 = Low Risk Oriented to surroundings, Maintained a safe environment, Educated pt \T\ family on fall prevention, incl call for assistance when getting out of bed. 13:00 Abuse screen: Denies threats or abuse. Denies injuries from another. Nutritional hb screening: No deficits noted. Tuberculosis screening: No symptoms or risk factors identified. Assessment: 13:00 General: See triage assessment . hb 14:46 Reassessment: Patient appears in no apparent distress at this time. Patient and/or hb family updated on plan of care and expected duration. Pain level reassessed. Patient is alert, oriented x 3, equal unlabored respirations, skin warm/dry/pink. Patient states symptoms have improved. Vital Signs: 12:56 BP 144 / 79; Pulse 84; Resp 16; Temp 97.3; Pulse Ox 98% on R/A; hb ED Course: 12:50 Patient arrived in ED. ra3 12:52 Tete Hurtado MD is Attending Physician. gb1 12:57 Triage completed. hb 12:58 Arm band placed on. hb 13:20 Ribs Left XRAY In Process Unspecified. EDMS 14:45 No provider procedures requiring assistance completed. Patient did not have IV access hb during this emergency room visit. 14:46 Patient has correct armband on for positive identification. Provided Education on: hb medications, follow up. Administered Medications: 13:06 Drug: Ketorolac IM 30 mg IM once Route: IM; Site: right deltoid; hb Medication: 14:46 VIS not applicable for this client. hb Outcome: 14:25 Discharge ordered by . gb1 14:45 Discharged to home ambulatory, hb 14:45 Condition: stable 14:45 Discharge instructions given to patient, Instructed on discharge instructions, follow up and referral plans. medication usage, Demonstrated understanding of instructions, follow-up care, medications, Prescriptions given X 1, 14:47 Patient left the ED. hb Signatures: Dispatcher [employer] EDMS Babita Yoo RN RN hb Tete Hurtado MD MD gb1 Jasmyne Gomez ra3 Corrections: (The following items were deleted from the chart) 12:58 12:56 Musculoskeletal: Capillary refill < 3 seconds, Reports right upper back pain hb hb 13:01 12:58 Allergies: PENICILLINS; hb hb
--- NOTE | 2023-12-12 14:26 | EDPHYS ---
Physician Documentation [facility] Name: Sagrario Low Age: 73 yrs Sex: Female : 1950 Arrival Date: 12/12/2023 Time: 12:46 Bed IW1 Private MD: ED Physician Tete Hurtado HPI: 12/11 14:28 This 73 yrs old Black Female presents to ER via Ambulatory with complaints of Back Pain.gb1 Historical: - Allergies: 12:59 No Known Allergies; hb - Home Meds: 12:59 levothyroxine oral [Active]; amlodipine oral [Active]; losartan oral [Active]; hb 13:01 Hydrocodone-Acetaminophen Oral [Active]; Cyclobenzaprine Oral [Active]; hb - PMHx: 12:58 Hypertensive disorder; Hypothyroidism; hb - PSHx: 12:58 section; Cholecystectomy; knee; hb - Immunization history:: Adult Immunizations up to date. - Infectious Disease History:: Denies. - Social history:: Smoking status: Patient denies any tobacco usage or history of. Exam: 14:28 Constitutional: This is a well developed, well nourished patient who is awake, alert, gb1 and in no acute distress. Head/Face: Normocephalic, atraumatic. Eyes: Pupils equal round and reactive to light, extra-ocular motions intact. Lids and lashes normal. Conjunctiva and sclera are non-icteric and not injected. Cornea within normal limits. Periorbital areas with no swelling, redness, or edema. ENT: Nares patent. No nasal discharge, no septal abnormalities noted. Tympanic membranes are normal and external auditory canals are clear. Oropharynx with no redness, swelling, or masses, exudates, or evidence of obstruction, uvula midline. Mucous membranes moist. Neck: Trachea midline, no thyromegaly or masses palpated, and no cervical lymphadenopathy. Supple, full range of motion without nuchal rigidity, or vertebral point tenderness. No Meningismus. Chest/axilla: Normal chest wall appearance and motion. +posterior thorax, underneath scapula +TTP with light palipation, with no obvious deformity. No lesions are appreciated. Cardiovascular: Regular rate and rhythm with a normal S1 and S2. No gallops, murmurs, or rubs. Normal PMI, no JVD. No pulse deficits. Respiratory: Lungs have equal breath sounds bilaterally, clear to auscultation and percussion. No rales, rhonchi or wheezes noted. No increased work of breathing, no retractions or nasal flaring. Abdomen/GI: Soft, non-tender, with normal bowel sounds. No distension or tympany. No guarding or rebound. No evidence of tenderness throughout. Back: No spinal tenderness. No costovertebral tenderness. Full range of motion. Skin: Warm, dry with normal turgor. Normal color with no rashes, no lesions, and no evidence of cellulitis. MS/ Extremity: Pulses equal, no cyanosis. Neurovascular intact. Full, normal range of motion. Vital Signs: 12:56 BP 144 / 79; Pulse 84; Resp 16; Temp 97.3; Pulse Ox 98% on R/A; hb MDM: 12:54 Patient medically screened. gb1 14:28 Differential diagnosis: chronic back pain, Fracture Joint Injury Osteoporosis ruptured gb1 disc, sprain, vertebral fracture. Data reviewed: radiologic studies, Left rib series is negative for fracture or dislocation. 08 13:01 Order name: Ribs Left XRAY; Complete Time: 13:34 gb1 Administered Medications: 13:06 Drug: Ketorolac IM 30 mg IM once Route: IM; Site: right deltoid; hb Disposition Summary: 12/12/23 14:25 Discharge Ordered Notes: Location: Home gb1 Condition: Stable gb1 Diagnosis - Strain of muscle and tendon of thorax gb1 Followup: gb1 - With: Private Physician - When: 2 - 3 days - Reason: Re-evaluation by your physician Discharge Instructions: - Discharge Summary Sheet gb1 - Muscle Cramps and Spasms gb1 Forms: - Medication Reconciliation Form gb1 - Antibiotic Education gb1 - Prescription Opioid Use gb1 - Patient Portal Instructions gb1 - Leadership Thank You Letter gb1 Prescriptions: - Ibuprofen 800 mg Oral Tablet - take 1 tablet ORAL route every 12 hours As needed take with food; 20 tablet; gb1 Refills: 0, Product Selection Permitted Signatures: Dispatcher [employer] EDMS Babita Yoo RN RN hb Tete Hurtado MD MD gb1 Corrections: (The following items were deleted from the chart) 13:01 12:58 Allergies: PENICILLINS; hb hb
[2023-12-12 17:49] VITALS: BP 144/79; TEMP 97.3; O2SAT 98
== END 2023-12-12 14:47 | disposition home or self-care (01) ==
LOC: ER 12:46
DX: S29.012A Strain of muscle and tendon of back wall of thorax, initial encounter (principal)
CPT/HCPCS: 96372; 99284

== ENCOUNTER 2024-01-07 16:27 | Emergency (ER) | payer OTHER ==
--- NOTE | 2024-01-07 18:12 | EDPHYS ---
Physician Documentation [facility] Name: Sagrario Low Age: 73 yrs Sex: Female : 1950 Arrival Date: 01/07/2024 Time: 16:27 Bed 9 Private MD: ED Physician Destin Tapia HPI: 01/06 17:36 This 73 yrs old Black Female presents to ER via Ambulatory with complaints of Eye cp Problem. 17:36 The patient is experiencing pain, tearing, to the right eye. Onset: The cp symptoms/episode began/occurred 2 day(s) ago. 17:36 Duration: the symptoms are continuous. Associated signs and symptoms: Pertinent cp negatives: fever, headache. Patient does not utilize any form of vision correction. Severity of symptoms: in the emergency department the symptoms are unchanged despite home interventions. Historical: - Allergies: 17:34 No Known Allergies; ap3 - PMHx: 17:34 Hypertensive disorder; Hypothyroidism; ap3 - PSHx: 17:34 section; Cholecystectomy; knee; ap3 - Immunization history:: Client reports receiving the 2nd dose of the Covid vaccine. - Infectious Disease History:: Denies. - Social history:: Smoking status: Patient denies any tobacco usage or history of. ROS: 17:40 Eyes: Positive for pain, clear drainage, cp 17:40 Constitutional: Negative for body aches, chills, fever, poor PO intake, cp 17:40 ENT: Negative for drainage from ear(s), ear pain, sore throat, difficulty swallowing, difficulty handling secretions, 17:40 Skin: Negative for rash, 17:40 All other systems are negative, Exam: 17:45 Head/Face: Normocephalic, atraumatic. cp 17:45 Constitutional: The patient appears in no acute distress, alert, awake, non-toxic, well developed, well nourished, 17:45 Eyes: Periorbital structures: appear normal, Pupils: equal, round, and reactive to cp light and accomodation, Extraocular movements: intact throughout, Conjunctiva: normal, no exudate, no injection, Sclera: no appreciated abnormality, Lids and lashes: drainage, is not appreciated, stye, inner lateral corner of right lower eyelid, mild swelling of right lower lid. 17:45 ENT: External ear(s): are unremarkable, Nose: is normal, Mouth: Lips: moist, Oral mucosa: pink and intact, moist, Posterior pharynx: Airway: no evidence of obstruction, patent, 17:45 Neck: ROM/movement: limited range of motion, is not appreciated, Meningeal signs: are not present, Lymph nodes: no appreciated lymphadenopathy, 17:45 Chest/axilla: Inspection: normal, 17:45 Cardiovascular: Rate: normal, Rhythm: regular, 17:45 Respiratory: the patient does not display signs of respiratory distress, Respirations: normal, no use of accessory muscles, no retractions, labored breathing, is not present, Breath sounds: are clear throughout, no decreased breath sounds, no stridor, no wheezing, 17:45 Abdomen/GI: Exam negative for discomfort, distension, guarding, Inspection: abdomen appears normal, 17:45 Skin: no rash present. Vital Signs: 17:32 BP 149 / 86; Pulse 77; Resp 17; Temp 97.7; Pulse Ox 100% ; Weight 81.65 kg; Pain 8/10; ap3 18:33 BP 134 / 76; Pulse 69; Resp 18; Temp 97.9(TE); Pulse Ox 99% on R/A; ld1 17:32 Pain Scale: Adult ap3 Visual Acuity: 17:40 Left Eye Visual acuity 20/30, ; Right Eye Visual acuity 20/40, ; Both Eyes Visual ap3 acuity 20/30; Without Lenses; MDM: 17:49 Patient medically screened. cp 18:00 Differential diagnosis: Corneal abrasion of Corneal ulcer of Foreign body in [facility], [place]. 18:10 Data reviewed: vital signs, nurses notes, and as a result, I will discharge patient. cp 18:10 Counseling: I had a detailed discussion with the patient and/or guardian regarding the cp historical points, exam findings, and any diagnostic results supporting the discharge/admit diagnosis, to return to the emergency department if symptoms worsen or persist or if there are any questions or concerns that arise at home. 01/06 17:36 Order name: Visual Acuity; Complete Time: 17:40 cp Administered Medications: No medications were administered Disposition: 19:35 Co-signature as Attending Physician, Destin Tapia MD I reviewed the patient's care rt provided by the Advanced Practice Provider and agree with the diagnosis and treatment plan. Disposition Summary: 01/07/24 18:11 Discharge Ordered Notes: Location: Home cp Problem: new cp Symptoms: are unchanged cp Condition: Stable cp Diagnosis - Hordeolum internum right lower eyelid cp Followup: cp - With: Violeta Caceres MD - When: 2 - 3 days - Reason: Worsening of condition Discharge Instructions: - Discharge Summary Sheet cp Forms: - Medication Reconciliation Form cp - Antibiotic Education cp - Prescription Opioid Use cp - Patient Portal Instructions cp - Leadership Thank You Letter cp Prescriptions: - Bacitracin 500 unit/gram Ophthalmic ointment - instill 0.5 inch OPHTHALMIC route 3 times per day for 5 days; 1 unit; Refills: cp 0, Product Selection Permitted Signatures: Pelon Kennedy PA PA cp Andressa Ogden RN RN ap3 Destin Tapia MD MD rt Corrections: (The following items were deleted from the chart) 01/07 18:11 18:06 Constitutional: The patient appears in no acute distress, alert, awake, cp non-toxic, well developed, well nourished, cp 18:11 18:06 Head/Face: Normocephalic, atraumatic. cp cp
--- NOTE | 2024-01-07 18:12 | ER ---
Nurse's Notes [facility] Name: Sagrario Low Age: 73 yrs Sex: Female : 1950 Arrival Date: 01/07/2024 Time: 16:27 Bed 9 Private MD: Diagnosis: Hordeolum internum right lower eyelid Presentation: 01/06 17:32 Chief complaint: Patient states: her right eye has been itching and watering for 2 ap3 days. patient complains of eye pain being an 8/10 on the pain scale at this time. Coronavirus screen: At this time, the client does not indicate any symptoms associated with coronavirus-19. Ebola Screen: No symptoms or risks identified at this time. Initial Sepsis Screen: Does the patient meet any 2 criteria? No. Patient's initial sepsis screen is negative. Does the patient have a suspected source of infection? No. Patient's initial sepsis screen is negative. Risk Assessment: Do you want to hurt yourself or someone else? Patient reports no desire to harm self or others. Onset of symptoms was January 05, 2024. 17:32 Method Of Arrival: Ambulatory ap3 17:32 Acuity: ERIC 4 ap3 Triage Assessment: 17:35 General: Appears in no apparent distress. Behavior is calm, cooperative, appropriate ap3 for age. Pain: Complains of pain in right eye Pain currently is 8 out of 10 on a pain scale. Pain began 2-3 days ago. EENT: Reports pain in right eye. Neuro: Level of Consciousness is awake, alert, obeys commands, Oriented to person, place, time, situation. Cardiovascular: Patient's skin is warm and dry. Respiratory: Airway is patent Respiratory effort is even, unlabored, Respiratory pattern is regular, symmetrical. Historical: - Allergies: 17:34 No Known Allergies; ap3 - PMHx: 17:34 Hypertensive disorder; Hypothyroidism; ap3 - PSHx: 17:34 section; Cholecystectomy; knee; ap3 - Immunization history:: Client reports receiving the 2nd dose of the Covid vaccine. - Infectious Disease History:: Denies. - Social history:: Smoking status: Patient denies any tobacco usage or history of. Screenin:36 [facility] ED Fall Risk Assessment (Adult) History of falling in the last 3 months, ap3 including since admission No falls in past 3 months (0 pts) Confusion or Disorientation No (0 pts) Intoxicated or Sedated No (0 pts) Impaired Gait No (0 pts) Mobility Assist Device Used No (0 pt) Altered Elimination No (0 pt) Score/Fall Risk Level 0 - 2 = Low Risk Oriented to surroundings, Maintained a safe environment, Educated pt \T\ family on fall prevention, incl call for assistance when getting out of bed, Assessed \T\ reinforced patient's understanding of fall precautions, Hourly rounding (assess needs \T\ fall precautionary measures) done, Used ambulatory aids as needed (educated on \T\ assisted with), Used gait belt as appropriate. Abuse screen: Denies threats or abuse. Nutritional screening: No deficits noted. Tuberculosis screening: No symptoms or risk factors identified. Vital Signs: 17:32 BP 149 / 86; Pulse 77; Resp 17; Temp 97.7; Pulse Ox 100% ; Weight 81.65 kg; Pain 8/10; ap3 18:33 BP 134 / 76; Pulse 69; Resp 18; Temp 97.9(TE); Pulse Ox 99% on R/A; ld1 17:32 Pain Scale: Adult ap3 Visual Acuity: 17:40 Left Eye Visual acuity 20/30, ; Right Eye Visual acuity 20/40, ; Both Eyes Visual ap3 acuity 20/30; Without Lenses; ED Course: 16:32 Patient arrived in ED. mg5 17:12 Pelon Kennedy PA is PHCP. cp 17:12 Destin Tapia MD is Attending Physician. cp 17:34 Triage completed. ap3 17:36 Arm band placed on right wrist. ap3 17:36 No provider procedures requiring assistance completed. ap3 18:09 Violeta Caceres MD is Referral Physician. cp 18:34 Patient has correct armband on for positive identification. Provided Education on: ed ld1 process. 18:34 Patient did not have IV access during this emergency room visit. ld1 Administered Medications: No medications were administered Medication: 17:36 VIS not applicable for this client. ap3 Outcome: 18:11 Discharge ordered by . cp 18:34 Discharged to home ambulatory, with family, ld1 18:34 Condition: stable 18:34 Discharge instructions given to patient, Instructed on discharge instructions, follow up and referral plans. medication usage, Demonstrated understanding of instructions, follow-up care, medications, Prescriptions given X 1, 18:35 Patient left the ED. ld1 Signatures: Pelon Kennedy PA PA cp Prokisch, Amanda RN RN ap3 Mikaela Marroquin RN RN ld1 Serina Pride mg5
[2024-01-07 19:09] VITALS: BP 134/76; TEMP 97.9; O2SAT 99
== END 2024-01-07 18:35 | disposition home or self-care (01) ==
LOC: ER 16:27
DX: H00.022 Hordeolum internum right lower eyelid (principal)
CPT/HCPCS: 99283

== ENCOUNTER 2024-05-15 12:25 | Emergency (ER) | payer OTHER ==
--- NOTE | 2024-05-15 13:22 | EDPHYS ---
Physician Documentation [facility] Name: Sagrario Low Age: 73 yrs Sex: Female : 1950 Arrival Date: 05/15/2024 Time: 12:25 Bed 15 Private MD: ED Physician Vonda Parham HPI: 05/15 13:18 This 73 yrs old Black Female presents to ER via Ambulatory with complaints of right sp3 sciatic pain. 13:18 73-year-old female with history of hypertension, hypothyroidism, sciatica and chronic sp3 pain who sees chronic pain physician and has had multiple pain injections to the back, now presents with recurrent right sided sciatica/radiculopathy type symptoms. She denies loss of bowel or bladder control or inability to walk or foot drop. Review of systems negative for headache, neck pain, chest pain, back pain, shortness of breath, numbness or tingling or other neurological symptoms, abdominal pain, or any other signs or symptoms on ROS at this time.. Historical: - Allergies: 12:45 No Known Allergies; iw - PMHx: 12:45 Hypertensive disorder; Hypothyroidism; iw - PSHx: 12:45 section; Cholecystectomy; knee; iw - Immunization history:: Adult Immunizations up to date. - Infectious Disease History:: Denies. - Social history:: Smoking status: Patient denies any tobacco usage or history of. ROS: 13:19 Constitutional: Negative for fever, chills, and weight loss, Eyes: Negative for injury, sp3 pain, redness, and discharge, ENT: Negative for injury, pain, and discharge, Neck: Negative for injury, pain, and swelling, Cardiovascular: Negative for chest pain, palpitations, and edema, Respiratory: Negative for shortness of breath, cough, wheezing, and pleuritic chest pain, Abdomen/GI: Negative for abdominal pain, nausea, vomiting, diarrhea, and constipation, Back: Negative for injury and pain, Skin: Negative for injury, rash, and discoloration, Neuro: Negative for headache, weakness, numbness, tingling, and seizure, Psych: Negative for depression, anxiety, suicide ideation, homicidal ideation, and hallucinations, Allergy/Immunology: Negative for hives, rash, and allergies, Endocrine: Negative for neck swelling, polydipsia, polyuria, polyphagia, and marked weight changes, Hematologic/Lymphatic: Negative for swollen nodes, abnormal bleeding, and unusual bruising, 13:19 All other systems are negative, Exam: 13:19 Constitutional: This is a well developed, well nourished patient who is awake, alert, sp3 and in no acute distress. Head/Face: Normocephalic, atraumatic. Eyes: Pupils equal round and reactive to light, extra-ocular motions intact. Lids and lashes normal. Conjunctiva and sclera are non-icteric and not injected. Cornea within normal limits. Periorbital areas with no swelling, redness, or edema. Neck: Trachea midline, no thyromegaly or masses palpated, and no cervical lymphadenopathy. Supple, full range of motion without nuchal rigidity, or vertebral point tenderness. No Meningismus. Chest/axilla: Normal chest wall appearance and motion. Nontender with no deformity. No lesions are appreciated. Cardiovascular: Regular rate and rhythm with a normal S1 and S2. No gallops, murmurs, or rubs. Normal PMI, no JVD. No pulse deficits. Respiratory: Lungs have equal breath sounds bilaterally, clear to auscultation and percussion. No rales, rhonchi or wheezes noted. No increased work of breathing, no retractions or nasal flaring. Abdomen/GI: Soft, non-tender, with normal bowel sounds. No distension or tympany. No guarding or rebound. No evidence of tenderness throughout. Back: No spinal tenderness. No costovertebral tenderness. Full range of motion. Skin: Warm, dry with normal turgor. Normal color with no rashes, no lesions, and no evidence of cellulitis. Neuro: Awake and alert, GCS 15, oriented to person, place, time, and situation. Cranial nerves II-XII grossly intact. Motor strength 5/5 in all extremities. Sensory grossly intact. Cerebellar exam normal. Normal gait. Psych: Awake, alert, with orientation to person, place and time. Behavior, mood, and affect are within normal limits. 13:19 Musculoskeletal/extremity: Patient has pain to palpation of the right buttock and pain on straight leg raise of the right side. Obesity limits abdominal exam however no pain to palpation Limited exam demonstrates no pulsating aorta. Neurological exam is normal. Patient in no acute distress.. Vital Signs: 12:44 BP 153 / 78; Pulse 74; Resp 16; Temp 97.3; Pulse Ox 98% on R/A; Weight 83.91 kg; Height iw 5 ft. 3 in. ; Pain 10/10; 14:29 BP 149 / 76; Pulse 72; Resp 15; Temp 98.1; Pulse Ox 98% ; me1 14:30 Pain 4/10; me1 12:44 Body Mass Index 32.77 (83.91 kg, 160.02 cm) iw 12:44 Pain Scale: Adult iw 14:30 Pain Scale: Adult me1 MDM: 12:44 Medical Screening Exam initiated sp3 13:20 Data reviewed: vital signs, nurses notes, old medical records. ED course: 73-year-old sp3 female with right radicular pain of the lower extremity. Differential diagnosis includes radiculopathy versus sciatica versus muscular strain versus other. I am not highly suspicious of aortic pathology including aneurysm, or any other critical process. Patient has had multiple visits for similar symptoms. Will administer Norflex, fentanyl IM and prednisone p.o. with Medrol Dosepak on DC. Patient will follow-up with PCP and pain management as needed.. Administered Medications: 13:52 Not Given (medication not availablee): [id number] mg IM once me1 13:52 Drug: fentaNYL (PF) IM 25 mcg IM once Route: IM; Site: right deltoid; me1 14:30 Follow up: Pain 4/10 Adult; Response: No adverse reaction; Pain is decreased me1 13:52 Drug: predniSONE PO 40 mg PO once Route: PO; me1 14:30 Follow up: Response: No adverse reaction me1 13:52 Drug: Diazepam IM 2 mg IM once Route: IM; Site: right deltoid; me1 14:30 Follow up: Response: No adverse reaction; Pain is decreased me1 Disposition Summary: 05/15/24 13:21 Discharge Ordered Notes: Location: Home sp3 Condition: Stable sp3 Diagnosis - Radiculopathy right lower extremity, sciatica, chronic pain sp3 Followup: sp3 - With: Private Physician - When: Upon discharge from the Emergency Department - Reason: Continuance of care Discharge Instructions: - Discharge Summary Sheet sp3 - Sciatica sp3 Forms: - Medication Reconciliation Form sp3 - Antibiotic Education sp3 - Prescription Opioid Use sp3 - Patient Portal Instructions sp3 - Leadership Thank You Letter sp3 - Work release form me1 Prescriptions: - Medrol (Tano) 4 mg Oral Tablets, Dose Pack - take 1 tablet ORAL route as directed - follow package instructions; 1 packet; sp3 Refills: 0, Product Selection Permitted Signatures: Oralia Solo, RN RN iw Vonda Parham MD MD sp3 Katina Welsh RN RN me1
--- NOTE | 2024-05-15 13:22 | ER ---
Nurse's Notes [facility] Name: Sagrario Low Age: 73 yrs Sex: Female : 1950 Arrival Date: 05/15/2024 Time: 12:25 Bed 15 Private MD: Diagnosis: Radiculopathy right lower extremity, sciatica, chronic pain Presentation: 05/15 12:44 Chief complaint: Patient states: right sciatic nerve pain started a few days ago. iw Coronavirus screen: At this time, the client does not indicate any symptoms associated with coronavirus-19. Ebola Screen: No symptoms or risks identified at this time. Initial Sepsis Screen: Does the patient meet any 2 criteria? No. Patient's initial sepsis screen is negative. Does the patient have a suspected source of infection? No. Patient's initial sepsis screen is negative. Risk Assessment: Do you want to hurt yourself or someone else? Patient reports no desire to harm self or others. Onset of symptoms was May 12, 2024. 12:44 Method Of Arrival: Ambulatory iw 12:44 Acuity: ERIC 4 iw Historical: - Allergies: 12:45 No Known Allergies; iw - PMHx: 12:45 Hypertensive disorder; Hypothyroidism; iw - PSHx: 12:45 section; Cholecystectomy; knee; iw - Immunization history:: Adult Immunizations up to date. - Infectious Disease History:: Denies. - Social history:: Smoking status: Patient denies any tobacco usage or history of. Screenin:58 [facility] ED Fall Risk Assessment (Adult) History of falling in the last 3 months, iw including since admission No falls in past 3 months (0 pts) Confusion or Disorientation No (0 pts) Intoxicated or Sedated No (0 pts) Impaired Gait No (0 pts) Mobility Assist Device Used No (0 pt) Altered Elimination No (0 pt) Score/Fall Risk Level 0 - 2 = Low Risk Oriented to surroundings, Maintained a safe environment. Abuse screen: Denies threats or abuse. Nutritional screening: No deficits noted. Tuberculosis screening: No symptoms or risk factors identified. Assessment: 12:46 General: Appears in no apparent distress. Behavior is calm, cooperative. Pain: iw Complains of pain in right lower back Pain currently is 10 out of 10 on a pain scale. Neuro: Level of Consciousness is awake, alert, obeys commands, Oriented to person, place, time, situation, Moves all extremities. Full function. Cardiovascular: Patient's skin is warm and dry. Respiratory: Respiratory effort is even, unlabored, Respiratory pattern is regular. 14:00 Reassessment: Discharge delayed to assess for medication affectiveness. me1 Vital Signs: 12:44 BP 153 / 78; Pulse 74; Resp 16; Temp 97.3; Pulse Ox 98% on R/A; Weight 83.91 kg; Height iw 5 ft. 3 in. ; Pain 10/10; 14:29 BP 149 / 76; Pulse 72; Resp 15; Temp 98.1; Pulse Ox 98% ; me1 14:30 Pain 4/10; me1 12:44 Body Mass Index 32.77 (83.91 kg, 160.02 cm) iw 12:44 Pain Scale: Adult iw 14:30 Pain Scale: Adult me1 ED Course: 12:30 Patient arrived in ED. sj2 12:42 Vonda Parham MD is Attending Physician. sp3 12:45 Triage completed. iw 12:45 Arm band placed on. iw 12:46 Oralia Solo, RN is Primary Nurse. iw 12:58 Patient has correct armband on for positive identification. Provided Education on: . iw 14:29 No provider procedures requiring assistance completed. Patient did not have IV access me1 during this emergency room visit. Administered Medications: 13:52 Not Given (medication not availablee): mg IM once me1 13:52 Drug: fentaNYL (PF) IM 25 mcg IM once Route: IM; Site: right deltoid; me1 14:30 Follow up: Pain 4/10 Adult; Response: No adverse reaction; Pain is decreased me1 13:52 Drug: predniSONE PO 40 mg PO once Route: PO; me1 14:30 Follow up: Response: No adverse reaction me1 13:52 Drug: Diazepam IM 2 mg IM once Route: IM; Site: right deltoid; me1 14:30 Follow up: Response: No adverse reaction; Pain is decreased me1 Medication: 12:58 VIS not applicable for this client. iw Outcome: 13:21 Discharge ordered by . sp3 14:30 Discharged to home ambulatory, me1 14:30 Condition: stable 14:30 Condition: stable 14:30 Discharge instructions given to patient, Instructed on discharge instructions, follow up and referral plans. medication usage, Demonstrated understanding of instructions, follow-up care, medications, Prescriptions given X 1, 14:30 Patient left the ED. me1 Signatures: Oralia Solo RN RN iw Vonda Parham MD MD sp3 Katina Welsh RN RN me1 Roro Marie 2
[2024-05-15] MEDS ORDERED: predniSONE 20 MG TAB ONE (13:37)
[2024-05-15] MEDS ORDERED: FENTANYL CITR 100 MCG/2 ML ONE (13:38)
[2024-05-15] MEDS ORDERED: DIAZEPAM 10 MG/2 ML INJ SYRINGE ONE (13:42)
[2024-05-15 14:56] VITALS: O2SAT 98
[2024-05-15 14:58] VITALS: BP 149/76; TEMP 98.1
== END 2024-05-15 14:30 | disposition home or self-care (01) ==
LOC: ER 12:25
DX: M54.16 Radiculopathy, lumbar region (principal); M54.31 Sciatica, right side; G89.29 Other chronic pain
CPT/HCPCS: 96372; 99284; J7512; J3360; J3010

== ENCOUNTER 2025-01-31 06:59 | Emergency (ER) | payer OTHER ==
[2025-01-31 07:53] LABS: Influenza A Ag Negative; Influenza B Ag Negative; SARS-CoV-2 Antigen Rapid Res Negative (Negative)
--- NOTE | 2025-01-31 08:59 | ER ---
Nurse's Notes [facility] Name: Sagrario Low Age: 74 yrs Sex: Female : 1950 Arrival Date: 01/31/2025 Time: 06:59 Bed 7 Private MD: Diagnosis: Nasal congestion Presentation: 01/31 07:19 Chief complaint: Congestion, body aches, and malaise x 2-3 days. Coronavirus screen: hb Client presents with at least one sign or symptom that may indicate coronavirus-19. Provider contacted for isolation considerations. Ebola Screen: No symptoms or risks identified at this time. Initial Sepsis Screen: Does the patient meet any 2 criteria? No. Patient's initial sepsis screen is negative. Does the patient have a suspected source of infection? No. Patient's initial sepsis screen is negative. Risk Assessment: Do you want to hurt yourself or someone else? Patient reports no desire to harm self or others. Onset of symptoms was January 29, 2025. 07:19 Method Of Arrival: Ambulatory 07:19 Acuity: ERIC 4 hb Triage Assessment: 07:21 General: Appears in no apparent distress. Behavior is calm, cooperative. Pain: Pain hb currently is 3 out of 10 on a pain scale. EENT: Reports sore throat, sinus congestion. Neuro: GCS 15. Cardiovascular: Patient's skin is warm and dry. Respiratory: Respiratory effort is even, unlabored, Respiratory pattern is regular, symmetrical. GI: No signs and/or symptoms were reported involving the gastrointestinal system. : No signs and/or symptoms were reported regarding the genitourinary system. Derm: Skin is pink, warm \T\ dry. Musculoskeletal: Reports body aches. 09:44 Respiratory: Breath sounds are clear. os Historical: - Allergies: 07:21 PENICILLINS; hb - PMHx: 07:21 Hypothyroidism; Hypertensive disorder; hb - PSHx: 07:21 Cholecystectomy; section; knee; hb - Immunization history:: Adult Immunizations up to date. - Infectious Disease History:: Denies. - Family history:: not pertinent. - Social history:: Smoking status: Patient denies any tobacco usage or history of. - Hospitalizations: : No recent hospitalization is reported. Screenin:22 [facility] ED Fall Risk Assessment (Adult) History of falling in the last 3 months, hb including since admission No falls in past 3 months (0 pts) Confusion or Disorientation No (0 pts) Intoxicated or Sedated No (0 pts) Impaired Gait No (0 pts) Mobility Assist Device Used No (0 pt) Altered Elimination No (0 pt) Score/Fall Risk Level 0 - 2 = Low Risk Oriented to surroundings, Maintained a safe environment, Educated pt \T\ family on fall prevention, incl call for assistance when getting out of bed. Abuse screen: Denies threats or abuse. Denies injuries from another. Nutritional screening: No deficits noted. Tuberculosis screening: No symptoms or risk factors identified. Assessment: 07:22 General: See triage assessment . hb Vital Signs: 07:19 BP 170 / 74; Pulse 65; Resp 16; Temp 98.5(O); Pulse Ox 99% on R/A; Pain 3/10; hb 09:20 BP 138 / 77; Pulse 82; Resp 18; Temp 98.4(O); Pulse Ox 96% on R/A; os 07:19 Pain Scale: Adult hb ED Course: 07:03 Patient arrived in ED. gm2 07:03 Ron Wolfe MD is Attending Physician. rn 07:21 Triage completed. hb 07:21 Arm band placed on. hb 07:22 Patient has correct armband on for positive identification. Bed in low position. Call hb light in reach. Provided Education on: call light . 07:22 No provider procedures requiring assistance completed. Patient did not have IV access hb during this emergency room visit. 07:26 Group A Streptococcus Rapid Sent. os 07:26 COVID-19 Ag + Flu A+B Ag Sent. os Administered Medications: No medications were administered Medication: 07:22 VIS not applicable for this client. hb Outcome: 08:58 Discharge ordered by . rn 09:44 Discharged to home ambulatory, os 09:44 Condition: good 09:44 Discharge instructions given to patient, Instructed on discharge instructions, follow up and referral plans. medication usage, 09:46 Patient left the ED. os Signatures: Ron Wolfe MD MD rn Baxter, Heather, RN RN hb Gus Spears RN RN os Meghan Rogers gm2 Corrections: (The following items were deleted from the chart) 07:21 07:21 PSHx: section; hb hb
--- NOTE | 2025-01-31 08:59 | EDPHYS ---
Physician Documentation [facility] Name: Sagrario Low Age: 74 yrs Sex: Female : 1950 Arrival Date: 01/31/2025 Time: 06:59 Bed 7 Private MD: ED Physician Ron Wolfe HPI: 01/31 07:18 This 74 yrs old Black Female presents to ER via Unassigned with complaints of rn Congestion. 07:18 Patient reports congestion that began yesterday. Went to work yesterday and started rn feeling sick. No fever or chills. No myalgias. No cough or shortness of breath. Reports malaise and congestion his only symptoms.. Historical: - Allergies: 07:21 PENICILLINS; hb - PMHx: 07:21 Hypothyroidism; Hypertensive disorder; hb - PSHx: 07:21 Cholecystectomy; section; knee; hb - Immunization history:: Adult Immunizations up to date. - Infectious Disease History:: Denies. - Family history:: not pertinent. - Social history:: Smoking status: Patient denies any tobacco usage or history of. - Hospitalizations: : No recent hospitalization is reported. ROS: 07:18 Constitutional: Negative for fever, chills, and weight loss, Eyes: Negative for injury, rn pain, redness, and discharge, ENT: Positive for nasal congestion Cardiovascular: Negative for chest pain, palpitations, and edema, Respiratory: Negative for shortness of breath, cough, wheezing, and pleuritic chest pain, Abdomen/GI: Negative for abdominal pain, nausea, vomiting, diarrhea, and constipation, MS/Extremity: Negative for injury and deformity, Skin: Negative for injury, rash, and discoloration, Neuro: Positive for generalized weakness and malaise Exam: 07:18 Constitutional: This is a well developed, well nourished patient who is awake, alert, rn and in no acute distress. Ambulatory to room without assistance or difficulty. No sign of respiratory distress Head/Face: Normocephalic, atraumatic. ENT: Clear nasal drainage, moist mucous membranes, no oropharyngeal erythema or exudate. No stridor Respiratory: Speaking full sentences, unlabored. Skin: No cyanosis Vital Signs: 07:19 BP 170 / 74; Pulse 65; Resp 16; Temp 98.5(O); Pulse Ox 99% on R/A; Pain 3/10; hb 09:20 BP 138 / 77; Pulse 82; Resp 18; Temp 98.4(O); Pulse Ox 96% on R/A; os 07:19 Pain Scale: Adult hb MDM: 07:03 Medical Screening Exam initiated rn 08:57 Differential Diagnosis: Bronchitis Upper Respiratory Infection Sinusitis Viral rn Syndrome. Data reviewed: vital signs, nurses notes, lab test result(s), and as a result, I will discharge patient. Counseling: I had a detailed discussion with the patient and/or guardian regarding the historical points, exam findings, and any diagnostic results supporting the discharge/admit diagnosis, lab results, the need for outpatient follow up, to return to the emergency department if symptoms worsen or persist or if there are any questions or concerns that arise at home. Special discussion: I discussed with the patient/guardian in detail that at this point there is no indication for admission to the hospital. It is understood, however, that if the symptoms persist or worsen the patient needs to return immediately for re-evaluation. Based on the history and exam findings, there is no indication for further emergent testing or inpatient evaluation. I discussed with the patient/guardian the need to see the primary care provider for further evaluation of the symptoms. 01/31 07:17 Order name: COVID-19 Ag + Flu A+B Ag; Complete Time: 08:51 rn 01/31 07:17 Order name: Group A Streptococcus Rapid; Complete Time: 08:51 rn 01/31 07:56 Order name: Throat Culture EDMS Administered Medications: No medications were administered Disposition Summary: 01/31/25 08:58 Discharge Ordered Notes: Location: Home rn Problem: new rn Symptoms: are unchanged rn Condition: Stable rn Diagnosis - Nasal congestion rn Followup: rn - With: Private Physician - When: As needed - Reason: Recheck today's complaints, Re-evaluation by your physician Discharge Instructions: - Discharge Summary Sheet rn Forms: - Work release form iw - Medication Reconciliation Form rn - Antibiotic inspector government property - Prescription Opioid Use rn - Patient Portal Instructions rn - Leadership Thank You Letter rn Prescriptions: - Zithromax Z-Tano 250 mg Oral Tablet - take 1 tablet ORAL route as directed for 5 days Day 1 - take two (2) tablets rn one time. Day 2, 3, 4 , 5 take one (1) tablet once daily.; 6 tablet; Refills: 0, Product Selection Permitted Signatures: Dispatcher [employer] Ron Tejada MD MD rn Baxter, Heather, RN RN hb Corrections: (The following items were deleted from the chart) 07:21 07:21 PSHx: section; hb hb
[2025-01-31 10:18] VITALS: BP 138/77; TEMP 98.4; O2SAT 96
== END 2025-01-31 09:46 | disposition home or self-care (01) ==
LOC: ER 06:59
DX: R09.81 Nasal congestion (principal); Z11.52 Encounter for screening for COVID-19
CPT/HCPCS: 36415; 87070; 87428; 99283